=== PATIENT | male | born 1935 | race Caucasian/White ===

== ENCOUNTER → 2016-10-19 | Outpatient (REF) | payer MEDICARE ==
[~2016-10-19] MED LIST: ALPR0.25 PO; BENA20TA PO; CITA20TA4 PO; COQ-100C2 PO; FLON0.054; LEVA500T PO; OMEP40CA2 PO; SYNT112T2 PO; TYLE650T25 PO
[2016-10-19 12:57] LABS: ALBUMIN 4.4 GM/DL (3.2-5.2); ALBUMIN/GLOBULIN RATIO 1.38 (1.00-1.93); ALKALINE PHOSPHATASE 100 U/L (45-117); ALT/SGPT 30 U/L (12-78); ANION GAP 10 MEQ/L (8-16); AST/SGOT 24 U/L (15-37); BILIRUBIN,TOTAL 0.8 MG/DL (0.2-1.0); BLOOD UREA NITROGEN 15 MG/DL (7-18); CALCIUM LEVEL 9.6 MG/DL (8.8-10.2); CARBON DIOXIDE LEVEL 29 MEQ/L (21-32); CHLORIDE LEVEL 101 MEQ/L (98-107); CREATININE FOR GFR 0.96 MG/DL (0.70-1.30); GLOMERULAR FILTRATION RATE > 60.0 (>35); GLUCOSE, FASTING 94 MG/DL (83-110); POTASSIUM SERUM 4.8 MEQ/L (3.5-5.1); SODIUM LEVEL 140 MEQ/L (136-145); TOTAL PROTEIN 7.6 GM/DL (6.4-8.2)
== END ==
LOC: M LABDRWAD 12:19
PROVIDERS: ATTEND Internal Medicine
DX: Z85.528 Personal history of other malignant neoplasm of kidney (principal)

== ENCOUNTER → 2016-12-08 | Outpatient (REF) | payer MEDICARE | LOC: M SMT 12:50 | PROVIDERS: ATTEND Nurse Practitioner Women's Health | DX: R39.15 Urgency of urination (principal) ==

== ENCOUNTER → 2017-01-11 | Outpatient (CLI) | payer MEDICARE ==
[2017-01-11 13:31] LABS: MEAN CORPUSCULAR HGB CONC 33.7 g/dl (32.0-36.5); RED CELL DISTRIBUTION WIDTH 12.5 % (11.5-14.5); WHITE BLOOD COUNT 7.5 K/mm3 (4.0-10.0)
[2017-01-11 13:46] LABS: ANION GAP 7 MEQ/L (8-16); BLOOD UREA NITROGEN 15 MG/DL (7-18); CALCIUM LEVEL 8.8 MG/DL (8.8-10.2); CARBON DIOXIDE LEVEL 29 MEQ/L (21-32); CHLORIDE LEVEL 101 MEQ/L (98-107); CREATININE FOR GFR 0.92 MG/DL (0.70-1.30); GLOMERULAR FILTRATION RATE > 60.0 (>35); GLUCOSE, FASTING 92 MG/DL (83-110); POTASSIUM SERUM 4.6 MEQ/L (3.5-5.1); SODIUM LEVEL 137 MEQ/L (136-145)
== END ==
LOC: M SMT 10:03
PROVIDERS: ATTEND Urology
DX: Z85.528 Personal history of other malignant neoplasm of kidney (principal)

== ENCOUNTER → 2017-03-22 | Outpatient (REF) | payer MEDICARE ==
[~2017-03-22] MED LIST changes: +LEVA1TAB2 PO; -LEVA500T PO
[2017-03-22 14:43] LABS: ALBUMIN 4.1 GM/DL (3.2-5.2); ALBUMIN/GLOBULIN RATIO 1.41 (1.00-1.93); ALKALINE PHOSPHATASE 77 U/L (45-117); ALT/SGPT 28 U/L (12-78); ANION GAP 8 MEQ/L (8-16); AST/SGOT 23 U/L (15-37); BILIRUBIN,TOTAL 0.8 MG/DL (0.2-1.0); BLOOD UREA NITROGEN 14 MG/DL (7-18); CALCIUM LEVEL 9.3 MG/DL (8.8-10.2); CARBON DIOXIDE LEVEL 28 MEQ/L (21-32); CHLORIDE LEVEL 102 MEQ/L (98-107); CREATININE FOR GFR 0.88 MG/DL (0.70-1.30); GLOMERULAR FILTRATION RATE > 60.0 (>35); GLUCOSE, FASTING 87 MG/DL (83-110); POTASSIUM SERUM 4.1 MEQ/L (3.5-5.1); SODIUM LEVEL 138 MEQ/L (136-145)
== END ==
LOC: M SFHCPLAZ 09:40
PROVIDERS: ATTEND Internal Medicine
DX: I10 Essential (primary) hypertension (principal); E03.9 Hypothyroidism, unspecified

== ENCOUNTER → 2017-07-12 | Outpatient (REF) | payer MEDICARE ==
[2017-07-12 13:06] LABS: MEAN CORPUSCULAR HEMOGLOBIN 31.7 pg (27.0-33.0); MEAN CORPUSCULAR HGB CONC 33.8 g/dl (32.0-36.5); MEAN CORPUSCULAR VOLUME 93.8 fl (80.0-96.0); PLATELET COUNT, AUTOMATED 289 10^3/uL (150-450); RED CELL DISTRIBUTION WIDTH 12.6 % (11.5-14.5); WHITE BLOOD COUNT 6.9 10^3/uL (4.0-10.0)
[2017-07-12 13:27] LABS: ANION GAP 10 MEQ/L (8-16); BLOOD UREA NITROGEN 17 MG/DL (7-18); CALCIUM LEVEL 9.3 MG/DL (8.8-10.2); CARBON DIOXIDE LEVEL 27 MEQ/L (21-32); CHLORIDE LEVEL 103 MEQ/L (98-107); CREATININE FOR GFR 0.82 MG/DL (0.70-1.30); GLOMERULAR FILTRATION RATE > 60.0 (>35); GLUCOSE, FASTING 96 MG/DL (83-110); SODIUM LEVEL 140 MEQ/L (136-145)
== END ==
LOC: M SFHCADAM 09:51
PROVIDERS: ATTEND Family Medicine
DX: Z85.528 Personal history of other malignant neoplasm of kidney (principal)

== ENCOUNTER → 2017-08-15 | Outpatient (REF) | payer MEDICARE ==
[~2017-08-15] MED LIST changes: +BENEPOW7 PO; +FLOM5CAP PO; +PHILCAP4 PO; +[UNRECOGNIZED DRUG - CODE] XX
[2017-08-15 12:21] LABS: MEAN CORPUSCULAR HEMOGLOBIN 31.7 pg (27.0-33.0); MEAN CORPUSCULAR VOLUME 93.4 fl (80.0-96.0); PLATELET COUNT, AUTOMATED 329 10^3/uL (150-450); RED CELL DISTRIBUTION WIDTH 12.5 % (11.5-14.5); WHITE BLOOD COUNT 7.7 10^3/uL (4.0-10.0)
[2017-08-15 12:43] LABS: ALBUMIN 4.2 GM/DL (3.2-5.2); ALBUMIN/GLOBULIN RATIO 1.24 (1.00-1.93); ALKALINE PHOSPHATASE 70 U/L (45-117); ALT/SGPT 39 U/L (12-78); ANION GAP 9 MEQ/L (8-16); AST/SGOT 31 U/L (7-37); BILIRUBIN,TOTAL 0.9 MG/DL (0.2-1.0); BLOOD UREA NITROGEN 21 MG/DL (7-18); CALCIUM LEVEL 9.5 MG/DL (8.8-10.2); CARBON DIOXIDE LEVEL 28 MEQ/L (21-32); CHLORIDE LEVEL 99 MEQ/L (98-107); CREATININE FOR GFR 0.87 MG/DL (0.70-1.30); GLOMERULAR FILTRATION RATE > 60.0 (>35); GLUCOSE, FASTING 89 MG/DL (83-110); MAGNESIUM LEVEL 2.3 MG/DL (1.8-2.4); POTASSIUM SERUM 4.3 MEQ/L (3.5-5.1); SODIUM LEVEL 136 MEQ/L (136-145); TOTAL PROTEIN 7.6 GM/DL (6.4-8.2)
== END ==
LOC: M SFHCPLAZ 08:45
PROVIDERS: ATTEND Internal Medicine
DX: I10 Essential (primary) hypertension (principal)
CPT/HCPCS: 36415; 80053; 83735; 85027; G0463

== ENCOUNTER 2017-09-14 07:07 | Day surgery (SDC) | payer MEDICARE ==
[~2017-09-14 07:07] MED LIST changes: -ALPR0.25 PO; -BENA20TA PO; -BENEPOW7 PO; -CITA20TA4 PO; -COQ-100C2 PO; -FLOM5CAP PO; -FLON0.054; -LEVA1TAB2 PO; +MIDAZOLAM INJ 2 MG/2 ML VIAL (J2250) As Ordered; -OMEP40CA2 PO; -PHILCAP4 PO; -SYNT112T2 PO; -TYLE650T25 PO; -[UNRECOGNIZED DRUG - CODE] XX; +fentaNYL 100 MCG/2 ML INJECTION (J3010) As Ordered
[2017-09-14] MEDS: TROPICAMIDE 1% OPHTH SOLN 2ML OS (09:16)
[2017-09-14] MEDS: PHENYLEPHRINE 2.5% OPHTH SOL 2ML OS (09:16)
[2017-09-14] MEDS: OFLOXACIN 0.3 % (OCUFLOX) OPTH SOL 5ML OS (09:17)
[2017-09-14] MEDS: PROPARACAINE 0.5% OPHTH SOL 15ML OS (09:17)
[2017-09-14] MEDS: POVIDONE-IODINE 5% OPHTH PREP SOL 30ML As Ordered (10:21)
[2017-09-14] MEDS: ACETYLCHOLINE OPHTH SOLN 1% 2ML (MIOCHOL-E) As Ordered (10:24)
[2017-09-14] MEDS: DUOVISC (0.50ML VISCOAT/0.55ML PROVISC) OPHTH KIT As Ordered (10:24)
[2017-09-14] MEDS: BALANCED SALT IRRIGATION SOLUTION 500ML BAG (FOR OR EYE MACHINE) As Ordered (10:24)
[2017-09-14] MEDS: LIDOCAINE 0.75%/EPINEPHRINE 0.025% IN BSS 1ML SYR INTRACAMERAL (OR ONLY) As Ordered (10:24)
[2017-09-14] MEDS: CEFUROXIME 1MG/0.1ML INTRACAMERAL INJ As Ordered (10:24)
== END 2017-09-14 11:30 | disposition home or self-care (01) ==
LOC: M SDC 07:07
DX: H25.12 Age-related nuclear cataract, left eye (principal); K58.9 Irritable bowel syndrome, unspecified; F41.9 Anxiety disorder, unspecified; F32.9 Major depressive disorder, single episode, unspecified; I10 Essential (primary) hypertension; K21.9 Gastro-esophageal reflux disease without esophagitis; M19.90 Unspecified osteoarthritis, unspecified site; Z85.528 Personal history of other malignant neoplasm of kidney; Z87.891 Personal history of nicotine dependence; E03.9 Hypothyroidism, unspecified; G31.89 Other specified degenerative diseases of nervous system; M79.661 Pain in right lower leg; K59.00 Constipation, unspecified; N40.0 Benign prostatic hyperplasia without lower urinary tract symptoms; Z79.899 Other long term (current) drug therapy; Z88.8 Allergy status to other drugs, medicaments and biological substances; Z88.1 Allergy status to other antibiotic agents
CPT/HCPCS: 66984

== ENCOUNTER → 2017-11-20 | Outpatient (REF) | payer MEDICARE ==
[2017-11-20 14:23] LABS: ALBUMIN 4.2 GM/DL (3.2-5.2); ALBUMIN/GLOBULIN RATIO 1.35 (1.00-1.93); ALKALINE PHOSPHATASE 89 U/L (45-117); ALT/SGPT 43 U/L (12-78); ANION GAP 5 MEQ/L (8-16); AST/SGOT 31 U/L (7-37); BILIRUBIN,TOTAL 0.6 MG/DL (0.2-1.0); BLOOD UREA NITROGEN 18 MG/DL (7-18); CALCIUM LEVEL 8.9 MG/DL (8.8-10.2); CARBON DIOXIDE LEVEL 29 MEQ/L (21-32); CHLORIDE LEVEL 108 MEQ/L (98-107); CREATININE FOR GFR 0.79 MG/DL (0.70-1.30); GLOMERULAR FILTRATION RATE > 60.0 (>35); GLUCOSE, FASTING 97 MG/DL (70-100); POTASSIUM SERUM 4.4 MEQ/L (3.5-5.1); SODIUM LEVEL 142 MEQ/L (136-145); THYROID STIMULATING HORMONE 0.429 uIU/ML (0.358-3.740); TOTAL PROTEIN 7.3 GM/DL (6.4-8.2)
== END ==
LOC: M SFHCADAM 08:19
DX: I10 Essential (primary) hypertension (principal); Z85.528 Personal history of other malignant neoplasm of kidney; E03.9 Hypothyroidism, unspecified
CPT/HCPCS: 84443

== ENCOUNTER → 2018-01-08 | Outpatient (REF) | payer MEDICARE ==
[2018-01-08 18:58] LABS: APPEARANCE, URINE CLEAR (CLEAR); BACTERIA, URINE AUTO NEGATIVE (NEGATIVE); BILIRUBIN, URINE AUTO NEGATIVE (NEGATIVE); BLOOD, URINE BLOOD 1+ (NEGATIVE); COLOR, URINE STRAW (YELLOW); GLUCOSE, URINE (UA) AUTO NEGATIVE (NEGATIVE); KETONE, URINE AUTO NEGATIVE (NEGATIVE); LEUKOCYTE ESTERASE, URINE AUTO NEGATIVE (NEGATIVE); NITRITE, URINE AUTO NEGATIVE (NEGATIVE); PROTEIN, URINE AUTO NEGATIVE (NEGATIVE); RBC, URINE AUTO 2 /HPF (0-3); SPECIFIC GRAVITY URINE AUTO 1.004 (1.002-1.035); SQUAMOUS EPITHELIAL CELL UR AU 0 /HPF (0-6); UROBILINOGEN, URINE AUTO 0.2 mg/dL (0.0-2.0); WBC, URINE AUTO 1 /HPF (0-3)
== END ==
LOC: M SMT 18:45
DX: Z85.528 Personal history of other malignant neoplasm of kidney (principal)
CPT/HCPCS: 80048

== ENCOUNTER → 2018-01-08 | Outpatient (REF) | payer MEDICARE ==
[2018-01-08 19:26] LABS: ANION GAP 5 MEQ/L (8-16); BLOOD UREA NITROGEN 19 MG/DL (7-18); CALCIUM LEVEL 9.2 MG/DL (8.8-10.2); CARBON DIOXIDE LEVEL 31 MEQ/L (21-32); CHLORIDE LEVEL 103 MEQ/L (98-107); CREATININE FOR GFR 1.29 MG/DL (0.70-1.30); GLOMERULAR FILTRATION RATE 56.9 (>35); GLUCOSE, FASTING 104 MG/DL (70-100); POTASSIUM SERUM 4.7 MEQ/L (3.5-5.1); SODIUM LEVEL 139 MEQ/L (136-145)
== END ==
LOC: M SFHCADAM 18:43
DX: Z85.528 Personal history of other malignant neoplasm of kidney (principal)

== ENCOUNTER → 2018-01-18 | Outpatient (REF) | payer MEDICARE ==
[2018-01-18 20:33] LABS: HEMATOCRIT 45.6 % (42.0-52.0); HEMOGLOBIN 15.5 g/dl (13.5-17.5); MEAN CORPUSCULAR HEMOGLOBIN 31.6 pg (27.0-33.0); MEAN CORPUSCULAR VOLUME 93.1 fl (80.0-96.0); PLATELET COUNT, AUTOMATED 293 10^3/uL (150-450); RED CELL DISTRIBUTION WIDTH 12.7 % (11.5-14.5); WHITE BLOOD COUNT 7.6 10^3/uL (4.0-10.0)
[2018-01-18 20:36] LABS: ANION GAP 9 MEQ/L (8-16); BLOOD UREA NITROGEN 22 MG/DL (7-18); CARBON DIOXIDE LEVEL 26 MEQ/L (21-32); CHLORIDE LEVEL 105 MEQ/L (98-107); CREATININE FOR GFR 0.83 MG/DL (0.70-1.30); GLOMERULAR FILTRATION RATE > 60.0 (>35); GLUCOSE, FASTING 83 MG/DL (70-100); POTASSIUM SERUM 4.3 MEQ/L (3.5-5.1); SODIUM LEVEL 140 MEQ/L (136-145)
== END ==
LOC: M SMT 11:30
DX: Z85.528 Personal history of other malignant neoplasm of kidney (principal)
CPT/HCPCS: 80048

== ENCOUNTER 2018-01-29 13:16 | Emergency (ER) | payer MEDICARE ==
[2018-01-29 15:32] LABS: HEMATOCRIT 44.9 % (42.0-52.0); HEMOGLOBIN 15.5 g/dl (13.5-17.5); MEAN CORPUSCULAR HEMOGLOBIN 31.7 pg (27.0-33.0); MEAN CORPUSCULAR HGB CONC 34.5 g/dl (32.0-36.5); MEAN CORPUSCULAR VOLUME 91.8 fl (80.0-96.0); PLATELET COUNT, AUTOMATED 256 10^3/uL (150-450); RED BLOOD COUNT 4.89 10^6/uL (4.30-6.10); RED CELL DISTRIBUTION WIDTH 12.5 % (11.5-14.5); WHITE BLOOD COUNT 8.4 10^3/uL (4.0-10.0)
[2018-01-29 15:36] LABS: KETONE, URINE AUTO RFX NEGATIVE (NEGATIVE); LEUKOCYTE ESTERASE UR AUTO RFX NEGATIVE (NEGATIVE); MUCUS, URINE RFX SMALL (NEGATIVE); NITRITE, URINE AUTO RFX NEGATIVE (NEGATIVE); RBC, URINE AUTO RFX 5 /HPF (0-3); SPECIFIC GRAVITY UR AUTO RFX 1.009 (1.002-1.035); SQUAM EPITHELIAL CELL UR AURFX 0 /HPF (0-6); WBC, URINE AUTO RFX 0 /HPF (0-3)
[2018-01-29 16:00] LABS: ALBUMIN 3.6 GM/DL (3.2-5.2); ALBUMIN/GLOBULIN RATIO 1.09 (1.00-1.93); ALKALINE PHOSPHATASE 92 U/L (45-117); ALT/SGPT 52 U/L (12-78); ANION GAP 3 MEQ/L (8-16); AST/SGOT 27 U/L (7-37); BILIRUBIN,DIRECT 0.1 MG/DL (0.0-0.2); BILIRUBIN,TOTAL 0.4 MG/DL (0.2-1.0); BLOOD UREA NITROGEN 16 MG/DL (7-18); CALCIUM LEVEL 8.6 MG/DL (8.8-10.2); CARBON DIOXIDE LEVEL 27 MEQ/L (21-32); CHLORIDE LEVEL 110 MEQ/L (98-107); GLOMERULAR FILTRATION RATE > 60.0 (>35); GLUCOSE, FASTING 92 MG/DL (70-100); POTASSIUM SERUM 4.1 MEQ/L (3.5-5.1); SODIUM LEVEL 140 MEQ/L (136-145); TOTAL PROTEIN 6.9 GM/DL (6.4-8.2)
== END 2018-01-29 16:57 | disposition home or self-care (01) ==
LOC: M ED 13:16
DX: F41.9 Anxiety disorder, unspecified (principal); R53.81 Other malaise; Z79.899 Other long term (current) drug therapy; Z88.1 Allergy status to other antibiotic agents
CPT/HCPCS: 71046

== ENCOUNTER → 2018-05-01 | Outpatient (REF) | payer MEDICARE ==
[2018-05-01 12:22] LABS: HEMOGLOBIN 16.6 g/dl (13.5-17.5); MEAN CORPUSCULAR HEMOGLOBIN 32.2 pg (27.0-33.0); MEAN CORPUSCULAR HGB CONC 33.9 g/dl (32.0-36.5); PLATELET COUNT, AUTOMATED 287 10^3/uL (150-450); RED BLOOD COUNT 5.16 10^6/uL (4.30-6.10); RED CELL DISTRIBUTION WIDTH 12.9 % (11.5-14.5); WHITE BLOOD COUNT 7.2 10^3/uL (4.0-10.0)
[2018-05-01 12:59] LABS: ALBUMIN 4.1 GM/DL (3.2-5.2); ALBUMIN/GLOBULIN RATIO 1.32 (1.00-1.93); ALKALINE PHOSPHATASE 83 U/L (45-117); ALT/SGPT 50 U/L (12-78); ANION GAP 8 MEQ/L (8-16); AST/SGOT 34 U/L (7-37); BILIRUBIN,TOTAL 0.8 MG/DL (0.2-1.0); BLOOD UREA NITROGEN 19 MG/DL (7-18); CARBON DIOXIDE LEVEL 27 MEQ/L (21-32); CHLORIDE LEVEL 106 MEQ/L (98-107); CHOLESTEROL LEVEL 97 MG/DL (<200); CHOLESTEROL RISK RATIO 1.616 (<5); CREATININE FOR GFR 0.92 MG/DL (0.70-1.30); GLOMERULAR FILTRATION RATE > 60.0 (>35); GLUCOSE, FASTING 91 MG/DL (70-100); HDL CHOLESTEROL 60 MG/DL (>40); LDL CHOLESTEROL 28.8 MG/DL (<100); NON-HDL-C 37 MG/DL; POTASSIUM SERUM 4.4 MEQ/L (3.5-5.1); SODIUM LEVEL 141 MEQ/L (136-145); TOTAL PROTEIN 7.2 GM/DL (6.4-8.2); TRIGLYCERIDES LEVEL 41 MG/DL (<150)
== END ==
LOC: M SFHCADAM 08:09
DX: Z85.528 Personal history of other malignant neoplasm of kidney (principal); I10 Essential (primary) hypertension
CPT/HCPCS: 80053

== ENCOUNTER → 2018-07-25 | Outpatient (REF) | payer MEDICARE ==
[2018-07-25 13:52] LABS: HEMATOCRIT 48.9 % (42.0-52.0); HEMOGLOBIN 16.7 g/dl (13.5-17.5); MEAN CORPUSCULAR HEMOGLOBIN 32.3 pg (27.0-33.0); MEAN CORPUSCULAR HGB CONC 34.2 g/dl (32.0-36.5); MEAN CORPUSCULAR VOLUME 94.6 fl (80.0-96.0); PLATELET COUNT, AUTOMATED 274 10^3/uL (150-450); RED BLOOD COUNT 5.17 10^6/uL (4.30-6.10); RED CELL DISTRIBUTION WIDTH 12.8 % (11.5-14.5); WHITE BLOOD COUNT 7.1 10^3/uL (4.0-10.0)
[2018-07-25 14:05] LABS: ANION GAP 6 MEQ/L (8-16); BLOOD UREA NITROGEN 19 MG/DL (7-18); CALCIUM LEVEL 9.1 MG/DL (8.8-10.2); CARBON DIOXIDE LEVEL 29 MEQ/L (21-32); CHLORIDE LEVEL 105 MEQ/L (98-107); CREATININE FOR GFR 0.92 MG/DL (0.70-1.30); GLOMERULAR FILTRATION RATE > 60.0 (>35); GLUCOSE, FASTING 89 MG/DL (70-100); POTASSIUM SERUM 4.6 MEQ/L (3.5-5.1); SODIUM LEVEL 140 MEQ/L (136-145)
== END ==
LOC: M SFHCADAM 08:05
DX: Z85.828 Personal history of other malignant neoplasm of skin (principal)
CPT/HCPCS: 80048

== ENCOUNTER → 2018-08-13 | Outpatient (CLI) | payer MEDICARE ==
[~2018-08-13] MED LIST changes: +ISOVUE-370 76% 100ML VIAL (Q9967) As Ordered; -MIDAZOLAM INJ 2 MG/2 ML VIAL (J2250) As Ordered; -fentaNYL 100 MCG/2 ML INJECTION (J3010) As Ordered
== END ==
LOC: M RAD 13:53
DX: Z85.528 Personal history of other malignant neoplasm of kidney (principal); N28.1 Cyst of kidney, acquired; K57.30 Diverticulosis of large intestine without perforation or abscess without bleeding; K40.90 Unilateral inguinal hernia, without obstruction or gangrene, not specified as recurrent
CPT/HCPCS: Q9967

== ENCOUNTER 2018-09-09 07:47 | Emergency (ER) | payer MEDICARE ==
[~2018-09-09] VITALS: Ht 167.6 cm; Wt 55.5 kg
[~2018-09-09 07:47] MED LIST changes: +ALPR0.25 PO; +BENA20TA PO; +BENEPOW7 PO; +CITA20TA4 PO; +COQ-100C2 PO; +FLOM0.4C39 PO; +FLON0.054; -ISOVUE-370 76% 100ML VIAL (Q9967) As Ordered; +LEVA1TAB2 PO; +NAPR250T4 PO; +OMEP40CA2 PO; +PHILCAP4 PO; +SYNT112T2 PO; +TYLE650T25 PO; +[UNRECOGNIZED DRUG - CODE] XX
[2018-09-09] MEDS ORDERED: TETANUS/DIPHTHERIA TOX ADSORB ADULT 0.5ML SYR/VIAL (90714) IM ONE (08:15)
[2018-09-09 08:16] LABS: BASO % 0.5 % (0.0-1.0); EOS # 0.1 10^3/uL (0.0-0.50); EOS % 1.3 % (0.0-3.0); HEMATOCRIT 45.9 % (42.0-52.0); HEMOGLOBIN 15.9 g/dl (13.5-17.5); LYMPH # 2.3 10^3/uL (1.5-4.5); LYMPH % 26.6 % (24.0-44.0); MEAN CORPUSCULAR HEMOGLOBIN 32.1 pg (27.0-33.0); MEAN CORPUSCULAR HGB CONC 34.6 g/dl (32.0-36.5); MEAN CORPUSCULAR VOLUME 92.7 fl (80.0-96.0); MONO # 0.9 10^3/uL (0.0-0.8); MONO % 9.8 % (0.0-5.0); NEUTROPHILS # 5.3 10^3/uL (1.8-7.7); NEUTROPHILS % 60.6 % (36.0-66.0); PLATELET COUNT, AUTOMATED 243 10^3/uL (150-450); RED BLOOD COUNT 4.95 10^6/uL (4.30-6.10); WHITE BLOOD COUNT 8.7 10^3/uL (4.0-10.0)
[2018-09-09] MEDS ORDERED: B-12100010 PO (08:29)
--- NOTE | 2018-09-09 08:29 | REP ---
Clinical: Fall . Findings: Age-related atrophy and microvascular ischemic changes are appreciated. The ventricles and sulci are symmetric. Woodson-white differentiation is maintained. There is no evidence for acute intracranial hemorrhage, mass/mass effect, pathology or infarction. No extra-axial fluid collection. Calvarium is intact. Paranasal sinuses and mastoid air cells are within normal limits. Impression: Age related atrophy and microvascular ischemic changes. No acute intracranial hemorrhage, infarction, or mass/mass effect. Electronically Signed by Babar Gomez MD 09/09/2018 08:21 A
--- NOTE | 2018-09-09 08:31 | REP ---
Clinical: Trauma. Fall. Technique: Axial noncontrast images from the skull base to the thoracic inlet with coronal and sagittal re-formations. Findings: Alignment and lordosis maintained. Moderate to advanced multilevel degenerative disc osteophyte complexes are appreciated including osteophytosis, endplate sclerosis, disc space narrowing, and hypertrophic facet changes. Narrowing to multiple neural foramen noted bilaterally. There is no evidence for acute fracture / compression injury or subluxation. Spinal canal is patent. Paravertebral soft tissues are normal. Impression: Multilevel degenerative changes. No acute fracture / compression injury or subluxation. Electronically Signed by Babar Gomez MD 09/09/2018 08:23 A
[2018-09-09 08:46] LABS: INR 1.03; PROTHROMBIN TIME 13.6 SECONDS (12.1-14.4)
[2018-09-09] MEDS ORDERED: LIDOCAINE 2% W/EPIN INJ 20ML **PRES FREE As Ordered ONE (08:47)
--- NOTE | 2018-09-09 08:47 | REP ---
Clinical: Trauma. Technique: Neutral and frog lateral views of the left hip. Findings: Generalized age-related degenerative changes are appreciated along with mild osteopenia. No acute fracture or dislocation. No subcutaneous emphysema. No foreign body. Impression: Generalized degenerative changes. No acute fracture or dislocation. Electronically Signed by Babar Gomez MD 09/09/2018 08:38 A
[2018-09-09 08:48] LABS: PARTIAL THROMBOPLASTIN TIME 30.4 SECONDS (25.4-37.6)
--- NOTE | 2018-09-09 08:48 | REP ---
Clinical: Trauma. Fall. Technique: AP and frog lateral views of the left femur. Findings: In conjunction with left hip series, the femur is intact. Age-related osteopenia and degenerative changes noted at the hip and knee joint. No acute fracture or dislocation. No subcutaneous emphysema. No foreign body. Impression: Age-related osteopenia and degenerative changes. No acute fracture or dislocation appreciated. Electronically Signed by Babar Gomez MD 09/09/2018 08:39 A
[2018-09-09 08:51] LABS: ALBUMIN 3.6 GM/DL (3.2-5.2); ALT/SGPT 55 U/L (12-78); BILIRUBIN,DIRECT 0.2 MG/DL (0.0-0.2); BILIRUBIN,TOTAL 0.5 MG/DL (0.2-1.0); BLOOD UREA NITROGEN 23 MG/DL (7-18); CALCIUM LEVEL 8.6 MG/DL (8.8-10.2); CARBON DIOXIDE LEVEL 27 MEQ/L (21-32); CHLORIDE LEVEL 104 MEQ/L (98-107); CPK CREATINE PHOSPHOKINASE 127 U/L (39-308); GLOMERULAR FILTRATION RATE > 60.0 (>35); GLUCOSE, FASTING 93 MG/DL (70-100); MB/CK RELATIVE INDEX 3.23 (< OR =4); POTASSIUM SERUM 4.3 MEQ/L (3.5-5.1); SODIUM LEVEL 137 MEQ/L (136-145); TOTAL PROTEIN 6.6 GM/DL (6.4-8.2); TROPONIN I < 0.02 NG/ML (< 0.10)
--- NOTE | 2018-09-09 08:51 | REP ---
Clinical: Trauma. Fall. Technique: AP and lateral views of the left tibia / fibula. Findings: Age-related osteopenia and advanced tricompartmental degenerative changes to the knee joint noted. No acute fracture or dislocation. No subcutaneous emphysema or radiodense foreign body. Impression: Osteopenia and degenerative changes. No acute fracture or dislocation. Electronically Signed by Babar Gomez MD 09/09/2018 08:42 A
--- NOTE | 2018-09-09 08:52 | REP ---
Clinical: Trauma. Fall. Technique: Single AP view of the pelvis. Findings: Age-related osteodystrophy and degenerative changes noted. No acute fracture or dislocation. No subcutaneous emphysema. No foreign body. Impression: No acute fracture or dislocation. Electronically Signed by Babar Gomez MD 09/09/2018 08:43 A
--- NOTE | 2018-09-09 08:53 | REP ---
Clinical: Trauma/fall . Comparison: 01/29/2018 . Findings: The mediastinum and cardiac silhouette are stable and within normal limits for portable technique. The lung odom the straight chronic changes without acute consolidation, effusion, or pneumothorax. Skeletal structures are intact. Impression: No acute cardiopulmonary process appreciated. Electronically Signed by Babar Gomez MD 09/09/2018 08:44 A
[2018-09-09 11:45] VITALS: BP 104/52
--- NOTE | 2018-09-09 19:28 | ECGEPIP ---
Stationary ECG Study [facility] - ED Test Date: 2018-09-09 Pat Name: PRINCE CAMPBELL Department: Room: - Gender: M Lap Cutter: kareem : [id number] Requested By: Rajendra Deleon Order Number: [id number] Reading MD: Rajendra Deleon Measurements Intervals Lane Rate: 55 P: 50 WI: 137 QRS: -70 QRSD: 101 T: 72 QT: 430 QTc: 412 Interpretive Statements SINUS BRADYCARDIA MARKED LEFT AXIS DEVIATION LOW QRS VOLTAGE IN EXTREMITY LEADS PATTERN CONSISTENT WITH PULMONARY DISEASE CW 04/07/[address] T WAVE CHANGES Electronically Signed On 09-09-2018 19:28:14 EST by Rajendra Deleon
== END 2018-09-09 11:48 | disposition home or self-care (01) ==
LOC: M ED 07:47 → EDBD 07:47 → M ED 11:48
DX: S01.81XA Laceration without foreign body of other part of head, initial encounter (principal); S70.02XA Contusion of left hip, initial encounter; W10.8XXA Fall (on) (from) other stairs and steps, initial encounter; Y92.018 Other place in single-family (private) house as the place of occurrence of the external cause; I10 Essential (primary) hypertension; E07.9 Disorder of thyroid, unspecified; F33.9 Major depressive disorder, recurrent, unspecified; F41.9 Anxiety disorder, unspecified; N40.0 Benign prostatic hyperplasia without lower urinary tract symptoms; I25.10 Atherosclerotic heart disease of native coronary artery without angina pectoris; I25.2 Old myocardial infarction; Z88.1 Allergy status to other antibiotic agents

== ENCOUNTER 2018-09-09 17:24 | Inpatient (IN) | payer MEDICARE ==
[~2018-09-09] VITALS: Ht 165.1 cm; Wt 55.5 kg
[~2018-09-09 17:24] MED LIST changes: +B-12100010 PO
--- NOTE | 2018-09-09 18:24 | HPEPDOC ---
[facility] Medical History & Physical Date of Admission Sep 09, 2018 Attending Physician: PHILLIP SOLO MD History and Physical CHIEF COMPLAINT: Unable to care for himself. HISTORY OF PRESENT ILLNESS: Patient is an 82-year-old man. He has medical history that significant for malignant neoplasm of the kidney, hypertension, anxiety, depression, irritable bowel syndrome, hypothyroidism, obstructive uropathy, osteoarthritis of knee. Cognitive dysfunction, chondrocalcinosis. Patient was seen earlier today. Status post mechanical fall. No loss of consciousness. No nausea no vomiting, no fever or chills. No shortness of breath. No palpitations, no chest pain, no dizziness, no headaches, no blurry vision. He was worked up with negative imaging for fracture and unremarkable, labs, patient was discharged home. However, he activated EMS again, stating he feels weak and unable to take care of himself since he lives at home alone. Family members are not agreeing to care for him at this time. Hospitalist called in for possible admission as patient is requesting skilled nursing placement. PAST MEDICAL HISTORY: 1. . 2. . 3. . PAST SURGICAL HISTORY: Per HPI SOCIAL HISTORY: This at home alone. Denies smoking, denies alcohol, denies use of illicit drugs FAMILY HISTORY: Father: Father diagnosed with lung cancer Mother: Mother Siblings: 3 brothers and one sister alive ALLERGIES: Please see below. REVIEW OF SYSTEMS: 12 point review of systems negative other than that described in the body of HPI. HOME MEDICATIONS: Please see below. PHYSICAL EXAMINATION: VITAL SIGNS: Temperature 98, pulse 64, respiratory rate 18, blood pressure 126/59, pulse oximetry 95% on room air. GENERAL APPEARANCE: Elderly man, trauma to left face with dressing noted, lying calmly in bed, not in any apparent distress. He is not pale, anicteric and afebrile HEENT: Atraumatic. Neck: Supple. LUNGS: Clear to auscultation bilaterally. CARDIOVASCULAR: S1 and 2 heard, no murmurs, rubs or gallops. ABDOMEN: Obese, soft, not tender, not distended. Bowel sounds normoactive. MUSCULOSKELETAL: Apparently within normal limits EXTREMITIES: No pedal edema, 2+ bilateral pedal pulses noted. NEUROLOGICAL: Awake, alert, oriented 3. PSYCHIATRIC: Normal affect LABORATORY DATA: See below. IMAGING: Done earlier today when he was evaluated. Status post mechanical fall. Right knee x-ray:Degenerative change CT abdomen and pelvis: 1. Kidneys demonstrate simple cysts and postsurgical changes involving the right kidney which remain stable. There is no evidence for recurrent no full mass. 2. Sigmoid diverticulosis without acute diverticulitis. CT spine and cervical:Multilevel degenerative changes. No acute fracture / compression injury or subluxation CT head without contrast:Age related atrophy and microvascular ischemic changes.No acute intracranial hemorrhage, infarction, or mass/mass effect. Left hip x-ray:Generalized degenerative changes. No acute fracture or dislocation. AP view x-ray of pelvis:No acute fracture or dislocation X-ray tibia-fibula, left:Osteopenia and degenerative changes. No acute fracture or dislocation. MICROBIOLOGY: Please see below. ASSESSMENT: 82-year-old man comes in complaining this evening of inability visit to care for himself at home with weakness. Patient was seen 8 AM this morning. Status post mechanical fall. Workup for chemotherapy negative for fracture. Also negative for any intracranial abnormalities. Patient was discharged. He returns requesting transition to skilled nursing/or rehabilitation. DIAGNOSIS: Weakness requesting skilled nursing placement/or rehabilitation . PLAN: 1. We will admit patient for observation under care of Dr. Solo 2. Store [employer] Associate consult placed. 3. Will resume current outpatient medications. 4. GI prophylaxis not indicated at this time. 5. DVT prophylaxis, TEDs. 6. Discharge planning will be for skilled nursing. Vital Signs Vital Signs Date Time Temp Pulse Resp B/P (MAP) Pulse Ox O2 Delivery O2 Flow Rate FiO2 09/09/18 17:42 98.0 64 18 126/59 (81) 95 Room Air Home Medications Scheduled (Coq-10) 100 Mg Cap, 100 MG PO DAILY (JoySports) 1 Cap Cap, 1 CAP PO DAILY Benazepril Hcl (Lotensin) 20 Mg Tab, 20 MG PO DAILY Citalopram Hydrobromide (Citalopram Hydrobromide) 20 Mg Tab, 40 MG PO DAILY Cyanocobalamin (B-12) 1,000 Mcg Cap, 1,000 MCG PO DAILY Levothyroxine Sodium (Synthroid) 112 Mcg Tab, 112 MCG PO DAILY Tamsulosin Hydrochloride (Flomax) 0.4 Mg Cap, 0.4 MG PO DAILY Wheat Dextrin (Benefiber) 1 Pow Pow, 1 POW PO BID Scheduled PRN Alprazolam (Alprazolam) 0.25 Mg Tab, 0.25 MG PO BID PRN for ANXIETY/AGITATION Allergies Coded Allergies: Tetracycline (Verified Allergy, Severe, 09/14/17) Minocycline (Verified Adverse Reaction, Mild, DIZZINESS, 09/14/17) REECE CERVANTES MD Sep 09, 2018 18:24
[2018-09-09 20:10] VITALS: BP 160/73
[2018-09-09] MEDS: ALPRAZolam 0.25 MG TAB PO PRN (21:55)
[2018-09-10 06:00] VITALS: BP 100/55
[2018-09-10] MEDS: LEVOTHYROXINE 112MCG TABLET (0.112MG) PO SCH (06:02)
[2018-09-10 07:59] LABS: BASO % 0.3 % (0.0-1.0); EOS # 0.1 10^3/uL (0.0-0.50); HEMATOCRIT 45.2 % (42.0-52.0); HEMOGLOBIN 16.1 g/dl (13.5-17.5); LYMPH # 1.7 10^3/uL (1.5-4.5); LYMPH % 15.6 % (24.0-44.0); MEAN CORPUSCULAR HEMOGLOBIN 32.7 pg (27.0-33.0); MEAN CORPUSCULAR HGB CONC 35.6 g/dl (32.0-36.5); MEAN CORPUSCULAR VOLUME 91.9 fl (80.0-96.0); MONO # 1.1 10^3/uL (0.0-0.8); MONO % 10.2 % (0.0-5.0); NEUTROPHILS # 7.9 10^3/uL (1.8-7.7); NEUTROPHILS % 72.4 % (36.0-66.0); PLATELET COUNT, AUTOMATED 235 10^3/uL (150-450); RED BLOOD COUNT 4.92 10^6/uL (4.30-6.10); WHITE BLOOD COUNT 10.9 10^3/uL (4.0-10.0)
[2018-09-10 08:19] LABS: BLOOD UREA NITROGEN 19 MG/DL (7-18); CALCIUM LEVEL 8.5 MG/DL (8.8-10.2); CARBON DIOXIDE LEVEL 27 MEQ/L (21-32); CHLORIDE LEVEL 105 MEQ/L (98-107); CREATININE FOR GFR 0.87 MG/DL (0.70-1.30); GLOMERULAR FILTRATION RATE > 60.0 (>35); GLUCOSE, FASTING 126 MG/DL (70-100); MAGNESIUM LEVEL 2.2 MG/DL (1.8-2.4); SODIUM LEVEL 138 MEQ/L (136-145)
[2018-09-10] MEDS: CYANOCOBALAMIN 500 MCG TAB PO SCH (08:52)
[2018-09-10] MEDS: ALPRAZolam 0.25 MG TAB PO PRN ×2 (08:53→19:35)
[2018-09-10] MEDS: TAMSULOSIN 0.4 MG CAP PO SCH (08:53)
[2018-09-10] MEDS: ACETAMINOPHEN TAB 650MG DOSE (2X325MG) PO PRN ×2 (08:53→22:43)
[2018-09-10] MEDS: BENAZEPRIL 20 MG TAB PO SCH (08:53)
[2018-09-10] MEDS: CitaloPRAM (CeleXA) 20 MG TAB PO SCH (08:54)
[2018-09-10] MEDS: BISACODYL 5 MG TAB PO PRN (08:54)
[2018-09-10] MEDS ORDERED: LEVOTHYROXINE 112MCG TABLET (0.112MG) PO SCH (09:00)
[2018-09-10] MEDS: HEPARIN SOD (PORCINE) 5000 UNITS/ML VIAL SQ SCH ×2 (09:00→19:35)
--- NOTE | 2018-09-10 13:36 | IPNPDOC ---
Text Note Date of Service The patient was seen on 09/10/18. NOTE Subjective: Patient is an 82 year old male with a PMHx of Cognitive dysfunction, HTN, Hypothyroidism, Malignant renal cell CA, Obstructive uropathy, IBS, Anxiety / Depression, OA who presented to the ER with complaints of weakness and difficulty with ambulation. Patient was recently at [facility] ER after he experienced a mechanical fall without any loss of consciousness. At that time he was evaluated and did not have a fracture. He was subsequently sent home. Patient returned again after calling EMS because he was unable to ambulate out of a chair at home. Hospitalist service was called for evaluation and management Patient was seen and examined at the bedside. Currently patient denies any chest pain, shortness of breath, palpitations. Denies nausea, vomiting, abdominal pain, constipation, diarrhea or discomfort with urination. Patient does noted difficulty with ambulation and instability, however, he's noted that this is been a chronic issue for him and has fallen several times outside of the hospital. Patient also notes that he has bad knees and weakness of his left leg that has been there for years. Objective: Vitals (See below) General: Lying in bed, no acute distress, comfortable, AAOx3 HEENT: NC, AT CVS: RRR, +S1S2 Lungs: Fair air entry b/l, -w/r/r Abdomen: Soft, ND, NT Extremities: - Edema, - Calf tenderness Neuro: Upper extremities 5/5 strength b/l, Lower extremities: L 4/5, R 4/5, No sensory deficits Assessment and plan: Deconditioning / Weakness - likely 2/2 recent mechanical fall (09/09), unlikely 2/2 neurologic compromise - Patient had initially presented to the emergency room on 09/09 after he experienced a mechanical fall at home - At that time he denied any loss of consciousness or any program symptoms - Patient was subsequently discharged home, and eventually returned back to the ER after complaining of weakness and difficulty caring for himself - Physical exam does reveal some weakness of his lower extremities; he is noted that this is a chronic issue for him - Patient describes several episodes of falling as an outpatient - Will order MRI lumbar spine - c/w PT - Discussed with patient about considerations for different outpatient setting; suggest assisted living - PFS/case management on board Mechanical fall on 09/09: - CT c-spine 09/09: Multilevel degenerative changes. No acute fracture / compression injury or subluxation - CT head 09/09: Age related atrophy and microvascular ischemic changes. No acute intracranial hemorrhage, infarction, or mass/mass effect. - XR L hip 09/09: Generalized degenerative changes. No acute fracture or dislocation. - XR pelvis 09/09: No acute fracture or dislocation - XR tib-fib 09/09: Osteopenia and degenerative changes. No acute fracture or dislocation. - XR R knee 09/09: Degenerative change - See above Cognitive dysfunction - Currently oriented to person / place / time - Consideration for placement HTN - BP - c/w Benazepril Hypothyroidism - c/w Levothyroxine Malignant renal cell CA - Follows with urology Obstructive uropathy / BPH - c/w Tamsulosin IBS - c/w Bisacodyl PRN Anxiety / Depression - c/w Citalopram and Alprazolam PRN OA - c/w Tylenol PRN DVT prophylaxis - Will start Heparin VS,Fishbone, I+O VS, Fishbone, I+O Laboratory Tests 09/10/18 07:44 Red Blood Count 4.92, Mean Corpuscular Volume 91.9, Mean Corpuscular Hemoglobin 32.7, Mean Corpuscular Hemoglobin Concent 35.6, Red Cell Distribution Width 12.6, Neutrophils (%) (Auto) 72.4 H, Lymphocytes (%) (Auto) 15.6 L, Monocytes (%) (Auto) 10.2 H, Eosinophils (%) (Auto) 1.0, Basophils (%) (Auto) 0.3, Neutrophils # (Auto) 7.9 H, Lymphocytes # (Auto) 1.7, Monocytes # (Auto) 1.1 H, Eosinophils # (Auto) 0.1, Basophils # (Auto) 0.0, Calcium Level 8.5 L Vital Signs Date Time Temp Pulse Resp B/P (MAP) Pulse Ox O2 Delivery O2 Flow Rate FiO2 09/10/18 08:53 100/55 09/10/18 06:00 98.7 55 16 92 Room Air I&O- Last 24 Hours up to 6 AM 09/10/18 05:59 Intake Total 120 ml Output Total 750 ml Balance -630 ml PHILLIP SOLO MD Sep 10, 2018 13:36
[2018-09-10 14:00] VITALS: BP 109/54
--- NOTE | 2018-09-10 19:20 | REPVR ---
EXAM: MR Lumbar Spine Without Contrast. EXAM DATE/TIME: 09/10/2018 6:38 PM CLINICAL HISTORY: 82 years old, male; Pain; Lumbago; Additional info: Jaz peoples TECHNIQUE: Multiplanar magnetic resonance images of the lumbar spine without intravenous contrast. COMPARISON: No relevant prior studies available. FINDINGS: Limitations: This examination is slightly limited secondary to motion artifact. Vertebrae: No fracture. Marrow: Hemangiomas within the L1 and L5 vertebral bodies. Spinal cord: The conus terminates at the level of the L1 vertebral body. DISCS/SPINAL CANAL/NEURAL FORAMINA: L1-L2: No significant disc disease. No stenosis. L2-L3: No significant disc disease. No stenosis. L3-L4: Mild disc space height loss and decreased disc signal. Left sided posterolateral/foraminal focal disc bulge which abuts and slightly displaces the left L4 nerve root. Bilateral facet hypertrophy and ligamentum flavum thickening. Mild spinal stenosis. L4-L5: Mild disc space height loss and decreased disc signal. Bilateral facet hypertrophy and ligamentum flavum thickening. Mild posterior broad-based disc protrusion, asymmetric to the left. No focal disc protrusion. No definite nerve impingement. Mild spinal stenosis. Mild bilateral foraminal stenosis. L5-S1: Decreased disc signal. Asymmetric left-sided posterior broad-based disc protrusion. Mild bilateral facet hypertrophy. No nerve root impingement or spinal stenosis. Soft tissues: Unremarkable. IMPRESSION: 1. Degenerative disc disease and facet arthrosis. 2. L3-L4 left posterolateral/foraminal focal disc bulge which abuts and slightly displaces the left L4 nerve root. Correlate with left L4 radiculopathy. Electronically signed by: Teddy Marin On 09/10/2018 19:20:03 PM
[2018-09-10 22:00] VITALS: BP 133/60
[2018-09-11 06:00] VITALS: BP 121/79
[2018-09-11] MEDS: LEVOTHYROXINE 112MCG TABLET (0.112MG) PO SCH (06:06)
[2018-09-11 06:17] LABS: BASO # 0.1 10^3/uL (0.0-0.2); BASO % 0.4 % (0.0-1.0); EOS # 0.1 10^3/uL (0.0-0.50); EOS % 0.5 % (0.0-3.0); HEMATOCRIT 46.7 % (42.0-52.0); HEMOGLOBIN 16.1 g/dl (13.5-17.5); LYMPH # 1.5 10^3/uL (1.5-4.5); MEAN CORPUSCULAR HEMOGLOBIN 31.8 pg (27.0-33.0); MEAN CORPUSCULAR HGB CONC 34.5 g/dl (32.0-36.5); MEAN CORPUSCULAR VOLUME 92.3 fl (80.0-96.0); MONO # 1.6 10^3/uL (0.0-0.8); MONO % 12.3 % (0.0-5.0); NEUTROPHILS # 9.9 10^3/uL (1.8-7.7); PLATELET COUNT, AUTOMATED 230 10^3/uL (150-450); RED BLOOD COUNT 5.06 10^6/uL (4.30-6.10); WHITE BLOOD COUNT 13.2 10^3/uL (4.0-10.0)
[2018-09-11 06:42] LABS: BLOOD UREA NITROGEN 22 MG/DL (7-18); CALCIUM LEVEL 8.6 MG/DL (8.8-10.2); CARBON DIOXIDE LEVEL 26 MEQ/L (21-32); CHLORIDE LEVEL 106 MEQ/L (98-107); CREATININE FOR GFR 0.94 MG/DL (0.70-1.30); GLOMERULAR FILTRATION RATE > 60.0 (>35); GLUCOSE, FASTING 108 MG/DL (70-100); POTASSIUM SERUM 3.5 MEQ/L (3.5-5.1); SODIUM LEVEL 138 MEQ/L (136-145)
[2018-09-11] MEDS: HEPARIN SOD (PORCINE) 5000 UNITS/ML VIAL SQ SCH ×2 (08:28→21:06)
[2018-09-11] MEDS: BENAZEPRIL 20 MG TAB PO SCH (08:29)
[2018-09-11] MEDS: CitaloPRAM (CeleXA) 20 MG TAB PO SCH (08:29)
[2018-09-11] MEDS: ALPRAZolam 0.25 MG TAB PO PRN ×2 (08:30→21:07)
[2018-09-11] MEDS: CYANOCOBALAMIN 500 MCG TAB PO SCH (08:30)
[2018-09-11] MEDS: TAMSULOSIN 0.4 MG CAP PO SCH (08:30)
[2018-09-11] MEDS: ACETAMINOPHEN TAB 650MG DOSE (2X325MG) PO PRN (08:30)
--- NOTE | 2018-09-11 09:44 | IPNPDOC ---
Text Note Date of Service The patient was seen on 09/11/18. NOTE Subjective: Patient is an 82 year old male with a PMHx of Cognitive dysfunction, HTN, Hypothyroidism, Malignant renal cell CA, Obstructive uropathy, IBS, Anxiety / Depression, OA who presented to the ER with complaints of weakness and difficulty with ambulation. Patient was recently at [facility] ER after he experienced a mechanical fall without any loss of consciousness. At that time he was evaluated and did not have a fracture. He was subsequently sent home. Patient returned again after calling EMS because he was unable to ambulate out of a chair at home. Hospitalist service was called for evaluation and management Patient was seen and examined at the bedside. Still reporting some weakness of his left leg. He denies any nausea, vomiting, abdominal pain, constipation, diarrhea or discomfort with urination. Yesterday. Patient had noted some vision abnormalities, however, this morning, he denies any blurring or double vision. Objective: Vitals (See below) General: Lying in bed, no acute distress, comfortable, AAOx3 HEENT: NC, AT CVS: RRR, +S1S2 Lungs: Fair air entry b/l, auscultations without any wheezing, rales or rhonchi Abdomen: Soft, nondistended and nontender Extremities: No evidence of lower extremity edema, - Calf tenderness Neuro: Upper extremities 5/5 strength b/l, Lower extremities: L 4/5, R 5/5, No s ensory deficits Assessment and plan: Deconditioning / Weakness - likely 2/2 recent mechanical fall (09/09), unlikely 2/2 neurologic compromise - Patient had initially presented to the emergency room on 09/09 after he experienced a mechanical fall at home - At that time he denied any loss of consciousness or any program symptoms - Patient was subsequently discharged home, and eventually returned back to the ER after complaining of weakness and difficulty caring for himself - Physical exam does reveal some weakness of his lower extremities; he is noted that this is a chronic issue for him - Patient describes several episodes of falling as an outpatient - MRI L-Spine 09/10: Degenerative disc disease and facet arthrosis. L3-L4 left posterolateral/foraminal focal disc bulge which abuts and slightly displaces the left L4 nerve root. Correlate with left L4 radiculopathy. - Discussed with patient about considerations for different outpatient setting; suggest assisted living; PFS/case management on board - Orthopedic surgery has been called on consultation; has recommended pain control and physical therapy - Will start Tramadol PRN and c/w PT Mechanical fall on 09/09: - CT c-spine 09/09: Multilevel degenerative changes. No acute fracture / compression injury or subluxation - CT head 09/09: Age related atrophy and microvascular ischemic changes. No acute intracranial hemorrhage, infarction, or mass/mass effect. - XR L hip 09/09: Generalized degenerative changes. No acute fracture or dislocation. - XR pelvis 09/09: No acute fracture or dislocation - XR tib-fib 09/09: Osteopenia and degenerative changes. No acute fracture or dislocation. - XR R knee 09/09: Degenerative change - See above Cognitive dysfunction - Currently oriented to person / place / time - Consideration for placement HTN - BP well controlled - c/w Benazepril Hypothyroidism - c/w Levothyroxine Malignant renal cell CA - Follows with urology Obstructive uropathy / BPH - c/w Tamsulosin IBS - c/w Bisacodyl PRN Anxiety / Depression - c/w Citalopram and Alprazolam PRN OA - c/w Tylenol PRN DVT prophylaxis - c/w Heparin Disposition: - c/w PT - c/w Pain control - Looking into placement options VS,Fishbone, I+O VS, Fishbone, I+O Laboratory Tests 09/11/18 06:03 Red Blood Count 5.06, Mean Corpuscular Volume 92.3, Mean Corpuscular Hemoglobin 31.8, Mean Corpuscular Hemoglobin Concent 34.5, Red Cell Distribution Width 12.7, Neutrophils (%) (Auto) 75.0 H, Lymphocytes (%) (Auto) 11.0 L, Monocytes (%) (Auto) 12.3 H, Eosinophils (%) (Auto) 0.5, Basophils (%) (Auto) 0.4, Neutrophils # (Auto) 9.9 H, Lymphocytes # (Auto) 1.5, Monocytes # (Auto) 1.6 H, Eosinophils # (Auto) 0.1, Basophils # (Auto) 0.1, Calcium Level 8.6 L Vital Signs Date Time Temp Pulse Resp B/P (MAP) Pulse Ox O2 Delivery O2 Flow Rate FiO2 09/11/18 08:29 121/79 09/11/18 06:00 98.0 72 18 93 Room Air I&O- Last 24 Hours up to 6 AM 09/11/18 05:59 Intake Total 1640 ml Output Total 1300 ml Balance 340 ml PHILLIP SOLO MD Sep 11, 2018 09:44
[2018-09-11 14:00] VITALS: BP 103/57
[2018-09-11] MEDS: traMADol 50 MG TAB PO PRN (21:07)
[2018-09-11 22:00] VITALS: BP 113/53
[2018-09-12] MEDS: ACETAMINOPHEN TAB 650MG DOSE (2X325MG) PO PRN (04:22)
[2018-09-12 06:00] VITALS: BP 104/56
[2018-09-12] MEDS: LEVOTHYROXINE 112MCG TABLET (0.112MG) PO SCH (06:03)
[2018-09-12 06:37] LABS: BASO % 0.3 % (0.0-1.0); EOS # 0.1 10^3/uL (0.0-0.50); EOS % 0.9 % (0.0-3.0); HEMATOCRIT 43.5 % (42.0-52.0); HEMOGLOBIN 15.1 g/dl (13.5-17.5); LYMPH # 1.5 10^3/uL (1.5-4.5); MEAN CORPUSCULAR HEMOGLOBIN 31.6 pg (27.0-33.0); MEAN CORPUSCULAR HGB CONC 34.7 g/dl (32.0-36.5); MONO # 1.2 10^3/uL (0.0-0.8); NEUTROPHILS # 7.8 10^3/uL (1.8-7.7); NEUTROPHILS % 73.1 % (36.0-66.0); PLATELET COUNT, AUTOMATED 230 10^3/uL (150-450); RED BLOOD COUNT 4.78 10^6/uL (4.30-6.10); WHITE BLOOD COUNT 10.7 10^3/uL (4.0-10.0)
[2018-09-12 07:02] LABS: BLOOD UREA NITROGEN 20 MG/DL (7-18); CALCIUM LEVEL 8.4 MG/DL (8.8-10.2); CARBON DIOXIDE LEVEL 24 MEQ/L (21-32); CHLORIDE LEVEL 106 MEQ/L (98-107); CREATININE FOR GFR 0.72 MG/DL (0.70-1.30); GLOMERULAR FILTRATION RATE > 60.0 (>35); GLUCOSE, FASTING 101 MG/DL (70-100); POTASSIUM SERUM 3.7 MEQ/L (3.5-5.1); SODIUM LEVEL 137 MEQ/L (136-145)
[2018-09-12] MEDS: CYANOCOBALAMIN 500 MCG TAB PO SCH (08:44)
[2018-09-12] MEDS: CitaloPRAM (CeleXA) 20 MG TAB PO SCH (08:44)
[2018-09-12] MEDS: TAMSULOSIN 0.4 MG CAP PO SCH (08:44)
[2018-09-12] MEDS: BENAZEPRIL 20 MG TAB PO SCH (08:45)
[2018-09-12] MEDS: MIRALAX *UNIT DOSE* 17GM PACKET PO PRN (08:45)
[2018-09-12] MEDS: HEPARIN SOD (PORCINE) 5000 UNITS/ML VIAL SQ SCH ×2 (08:46→20:42)
--- NOTE | 2018-09-12 10:01 | HPE ---
DATE OF ADMISSION: 09/12/2018 CHIEF COMPLAINT: Left hip and knee pain following a mechanical fall a few days ago. Apparently, this could be long-standing for him over the past few years but certainly made worse with this fall. He is a little bit circumscript with his answers, but it does sound like he does not have any numbness, tingling or weakness in his legs, just some pain that starts in the anterior and lateral aspect of the hip and goes down anterior and posterior aspect of his left thigh down to his knee. He does get this in the right side as well but not as bad. There is no loss of bowel or bladder function, but he apparently was taken some more laxatives in the last few days and when he has to urinate, he also has to move his bowels. He was stating to the manager skilled that he was feeling weak and unable to take care of himself since he lives at home alone. PAST MEDICAL HISTORY: Includes: 1. Malignant neoplasm of the kidney. 2. Hypertension. 3. Anxiety. 4. Depression. 5. Irritable bowel syndrome. 6. Hypothyroidism. 7. Obstructive uropathy. 8. Osteoarthritis of the left knee. 9. Cognitive dysfunction. 10. Chondrocalcinosis MEDICATIONS: - benazepril - citalopram - cyanocobalamin - levothyroxine - tamsulosin - heparin sodium - alprazolam - acetaminophen - bisacodyl ALLERGIES: MINOCYCLINE, TETRACYCLINE SURGICAL HISTORY: 1. Flexible sigmoidoscopy. 2. Endoscopic polypectomy. 3. Esophagogastroduodenoscopy (EGD) with biopsy. 4. Partial nephrectomy. SOCIAL HISTORY: Lives at home. Denies smoking, alcohol use or illicit drugs. PHYSICAL EXAMINATION: Vital signs are normal. Temperature 98. Blood pressure 121/79. Pulse rate 72. 93% on room air. On inspection, this man is lying in bed in a moderate amount of discomfort, trying to lay more on his right side. Inspection of his lumbar spine reveals no obvious deformity. Palpation of the lumbar spine revealed no midline tenderness. There is tenderness surrounding the hip and actually mostly posterior to the knee. His lower extremity musculature is quite tight and seems like he has chronically increased tone. He has normal sensation from L2 to S1, as well as S2 to S4. His perianal sensation was normal. Strength in his lower extremities appeared full, although this was difficult to examine given his pain, but from L3 to S1 is definitely strong at 5/5 and hip flexion was difficult for him as this reproduced some pain and tightness along the posterior aspect of his left and right knee. Reflexes were difficult to elicit at the knees and ankle given his increased tone. Log rolling the hip did not produce any pain in the groin or hip. Range of motion testing in the knee was definitely diminished due to his pain, as well as chronically increased tone. Pulses in the lower extremities were normal. He had normal perfusion in his feet. Radiographs were reviewed. AP of the pelvis and AP lateral of the hip showed chronic moderate to severe osteoarthritis of the left hip, as well as the medial compartment primarily of the left knee. There was also an MRI performed of his lumbar spine. This demonstrates degenerative disc disease and facet arthrosis of L3 to L4, left posterolateral, left foramen focal disc bulge, which abuts slightly, displacing the left L4 nerve root. There are no obvious fractures seen. The clonus is normal. No obvious large disc bulge. ASSESSMENT AND PLAN: This 82-year-old man with MRI evidence of left L4 potential nerve root impingement with minimal clinical signs to correlate this on physical examination, I think that in the absence of fracture or large disc, I think that we should treat this nonoperatively with physiotherapy and pain control. I would suggest a pain consult for this man for different pain medications, as well as potential injections. He should mobilize and weight bearing as tolerated, and I recommend him seeing a physical therapist and occupational therapist while in the hospital.
--- NOTE | 2018-09-12 11:10 | IPNPDOC ---
Text Note Date of Service The patient was seen on 09/12/18. NOTE Subjective: Patient is an 82 year old male with a PMHx of Cognitive dysfunction, HTN, Hypothyroidism, Malignant renal cell CA, Obstructive uropathy, IBS, Anxiety / Depression, OA who presented to the ER with complaints of weakness and difficulty with ambulation. Patient was recently at [facility] ER after he experienced a mechanical fall without any loss of consciousness. At that time he was evaluated and did not have a fracture. He was subsequently sent home. Patient returned again after calling EMS because he was unable to ambulate out of a chair at home. Hospitalist service was called for evaluation and management Patient was seen and examined at the bedside. Patient complains of constipation this morning, he denies any nausea, vomiting, abdominal pain. Denies any discomfort with urination. Has not experienced any chest pain, shortness of tyler th or palpitations. Has been working with physical therapy. Objective: Vitals (See below) General: Lying in bed, no acute distress, comfortable, AAOx3 HEENT: NC, AT CVS: RRR, +S1S2 Lungs: Air entry is fair bilaterally, without any evidence of wheezing, rhonchi or rales Abdomen: Soft, abdomen, remains nondistended without tenderness Extremities: No evidence of lower extremity edema, - Calf tenderness Neuro: Upper extremities 5/5 strength b/l, Again lower extremities strength: L 4/5, R 5/5, No sensory deficits Assessment and plan: Deconditioning / Weakness - likely 2/2 recent mechanical fall (09/09), unlikely 2/2 neurologic compromise - Patient had initially presented to the emergency room on 09/09 after he experienced a mechanical fall at home - At that time he denied any loss of consciousness or any prodromal symptoms - Patient was subsequently discharged home, and eventually returned back to the ER after complaining of weakness and difficulty caring for himself - Physical exam does reveal some weakness of his lower extremities; he is noted that this is a chronic issue for him - Patient describes several episodes of falling as an outpatient - MRI L-Spine 09/10: Degenerative disc disease and facet arthrosis. L3-L4 left posterolateral/foraminal focal disc bulge which abuts and slightly displaces the left L4 nerve root. Correlate with left L4 radiculopathy. - Discussed with patient about considerations for different outpatient setting; suggest assisted living; PFS/case management on board - Orthopedic surgery has been called on consultation; has recommended pain control and physical therapy - c/w Tramadol PRN and Physical therapy - Will order occupational therapy and consult pain management Mechanical fall on 09/09: - CT c-spine 09/09: Multilevel degenerative changes. No acute fracture / compression injury or subluxation - CT head 09/09: Age related atrophy and microvascular ischemic changes. No acute intracranial hemorrhage, infarction, or mass/mass effect. - XR L hip 09/09: Generalized degenerative changes. No acute fracture or dislocation. - XR pelvis 09/09: No acute fracture or dislocation - XR tib-fib 09/09: Osteopenia and degenerative changes. No acute fracture or dislocation. - XR R knee 09/09: Degenerative change - See above Cognitive dysfunction - Currently oriented to person / place / time - Consideration for placement HTN - BP well controlled - c/w Benazepril Hypothyroidism - c/w Levothyroxine Malignant renal cell CA - Follows with urology Obstructive uropathy / BPH - c/w Tamsulosin IBS - c/w Bisacodyl PRN Anxiety / Depression - c/w Citalopram and Alprazolam PRN OA - c/w Tylenol PRN DVT prophylaxis - c/w Heparin Disposition: - c/w PT; will add OT - c/w Pain control; will consult pain management - Looking into placement options VS,Fishbone, I+O VS, Fishbone, I+O Laboratory Tests 09/12/18 06:22 Red Blood Count 4.78, Mean Corpuscular Volume 91.0, Mean Corpuscular Hemoglobin 31.6, Mean Corpuscular Hemoglobin Concent 34.7, Red Cell Distribution Width 12.6, Neutrophils (%) (Auto) 73.1 H, Lymphocytes (%) (Auto) 14.0 L, Monocytes (%) (Auto) 11.0 H, Eosinophils (%) (Auto) 0.9, Basophils (%) (Auto) 0.3, Neutrophils # (Auto) 7.8 H, Lymphocytes # (Auto) 1.5, Monocytes # (Auto) 1.2 H, Eosinophils # (Auto) 0.1, Basophils # (Auto) 0.0, Calcium Level 8.4 L Vital Signs Date Time Temp Pulse Resp B/P (MAP) Pulse Ox O2 Delivery O2 Flow Rate FiO2 09/12/18 08:45 104/56 09/12/18 06:00 97.5 61 18 91 Room Air I&O- Last 24 Hours up to 6 AM0 09/12/18 06:00 Intake Total 1800 ml Output Total 900 ml Balance 900 ml PHILLIP SOLO MD Sep 12, 2018 11:10
[2018-09-12 14:00] VITALS: BP 124/64
[2018-09-12] MEDS: ALPRAZolam 0.25 MG TAB PO PRN (20:42)
[2018-09-12 22:00] VITALS: BP 128/59
[2018-09-13] MEDS: traMADol 50 MG TAB PO PRN (01:28)
[2018-09-13] MEDS: LEVOTHYROXINE 112MCG TABLET (0.112MG) PO SCH (05:45)
[2018-09-13 06:00] VITALS: BP 120/61
[2018-09-13 06:52] LABS: BASO % 0.3 % (0.0-1.0); EOS # 0.1 10^3/uL (0.0-0.50); EOS % 0.9 % (0.0-3.0); HEMATOCRIT 42.6 % (42.0-52.0); HEMOGLOBIN 14.7 g/dl (13.5-17.5); LYMPH # 1.7 10^3/uL (1.5-4.5); MEAN CORPUSCULAR HEMOGLOBIN 31.7 pg (27.0-33.0); MEAN CORPUSCULAR HGB CONC 34.5 g/dl (32.0-36.5); MONO # 1.3 10^3/uL (0.0-0.8); MONO % 12.6 % (0.0-5.0); NEUTROPHILS # 7.3 10^3/uL (1.8-7.7); NEUTROPHILS % 69.2 % (36.0-66.0); PLATELET COUNT, AUTOMATED 237 10^3/uL (150-450); RED BLOOD COUNT 4.63 10^6/uL (4.30-6.10); WHITE BLOOD COUNT 10.5 10^3/uL (4.0-10.0)
[2018-09-13 07:19] LABS: BLOOD UREA NITROGEN 20 MG/DL (7-18); CALCIUM LEVEL 8.2 MG/DL (8.8-10.2); CARBON DIOXIDE LEVEL 27 MEQ/L (21-32); CHLORIDE LEVEL 107 MEQ/L (98-107); CREATININE FOR GFR 0.81 MG/DL (0.70-1.30); GLOMERULAR FILTRATION RATE > 60.0 (>35); GLUCOSE, FASTING 92 MG/DL (70-100); MAGNESIUM LEVEL 1.9 MG/DL (1.8-2.4); POTASSIUM SERUM 3.8 MEQ/L (3.5-5.1); SODIUM LEVEL 138 MEQ/L (136-145)
[2018-09-13] MEDS: CYANOCOBALAMIN 500 MCG TAB PO SCH (08:17)
[2018-09-13] MEDS: TAMSULOSIN 0.4 MG CAP PO SCH (08:18)
[2018-09-13] MEDS: BENAZEPRIL 20 MG TAB PO SCH (08:18)
[2018-09-13] MEDS: HEPARIN SOD (PORCINE) 5000 UNITS/ML VIAL SQ SCH ×2 (08:18→20:49)
[2018-09-13] MEDS: CitaloPRAM (CeleXA) 20 MG TAB PO SCH (08:18)
[2018-09-13] MEDS ORDERED: POLYVINYL ALCOHOL OPHTH SOLN 15 ML(LIQUITEARS) OU PRN (11:15)
[2018-09-13 14:00] VITALS: BP 121/59
--- NOTE | 2018-09-13 14:04 | IPNPDOC ---
Subjective Date Seen The patient was seen on 09/13/18. Subjective Chief Complaint/HPI Patient seen and examined at bedside. No acute overnight events noted. Objective Physical Examination General Exam: Positive: Alert, Cooperative, No Acute Distress ENT Exam: Positive: Atraumatic, Mucous membr. moist/pink Neck Exam: Negative: JVD Chest Exam: Positive: Clear to auscultation, Normal air movement Heart Exam: Positive: Rate Normal, Normal S1, Normal S2 Abdomen Exam: Positive: Soft; Negative: Tenderness Extremity Exam: Negative: Tenderness, Swelling Assessment /Plan Plan/VTE VTE Prophylaxis Ordered?: Yes Plan Deconditioning / Weakness MRI L-Spine 09/10: Degenerative disc disease and facet arthrosis. L3-L4 left posterolateral/foraminal focal disc bulge which abuts and slightly displaces the left L4 nerve root. Correlate with left L4 radiculopathy. Orthopedic surgery on board; has recommended pain control and physical therapy Cont Tramadol PRN and Physical therapy PFS/case management on board for placement Mechanical fall on 09/09 CT c-spine 09/09: Multilevel degenerative changes. No acute fracture / compression injury or subluxation CT head 09/09: Age related atrophy and microvascular ischemic changes. No acute intracranial hemorrhage, infarction, or mass/mass effect. XR L hip 09/09: Generalized degenerative changes. No acute fracture or dislocation. XR pelvis 09/09: No acute fracture or dislocation XR tib-fib 09/09: Osteopenia and degenerative changes. No acute fracture or dislocation. XR R knee 09/09: Degenerative change HTN Cont current regimen Hypothyroidism Levothyroxine Malignant renal cell CA Follow up as outpatient Obstructive uropathy / BPH Tamsulosin IBS Bisacodyl PRN Anxiety / Depression Citalopram and Alprazolam PRN OA Tylenol PRN DVT prophylaxis Heparin SC Disposition: PFS on board for placement. Pain mgmt consultation pending. VS, I&O, 24H, Fishbone Vital Signs/I&O Vital Signs Date Time Temp Pulse Resp B/P (MAP) Pulse Ox O2 Delivery O2 Flow Rate FiO2 09/13/18 08:18 120/61 09/13/18 06:00 99.6 60 20 91 Room Air I&O- Last 24 Hours up to 6 AM 09/13/18 05:59 Intake Total 1440 ml Output Total 350 ml Balance 1090 ml Laboratory Data 24H LABS Laboratory Tests 2 09/13/18 06:29: Immature Granulocyte % (Auto) 1.0, White Blood Count 10.5H, Red Blood Count 4.63, Hemoglobin 14.7, Hematocrit 42.6, Mean Corpuscular Volume 92.0, Mean Corpuscular Hemoglobin 31.7, Mean Corpuscular Hemoglobin Concent 34.5, Red Cell Distribution Width 12.6, Platelet Count 237, Neutrophils (%) (Auto) 69.2H, Lymphocytes (%) (Auto) 16.0L, Monocytes (%) (Auto) 12.6H, Eosinophils (%) (Auto) 0.9, Basophils (%) (Auto) 0.3, Neutrophils # (Auto) 7.3, Lymphocytes # (Auto) 1.7, Monocytes # (Auto) 1.3H, Eosinophils # (Auto) 0.1, Basophils # (Auto) 0.0, Nucleated Red Blood Cells % (auto) 0.0, Anion Gap 4L, Glomerular Filtration Rate > 60.0, Blood Urea Nitrogen 20H, Creatinine 0.81, Sodium Level 138, Potassium Level 3.8, Chloride Level 107, Carbon Dioxide Level 27, Calcium Level 8.2L, Magnesium Level 1.9 CBC/BMP Laboratory Tests 09/13/18 06:29 Red Blood Count 4.63, Mean Corpuscular Volume 92.0, Mean Corpuscular Hemoglobin 31.7, Mean Corpuscular Hemoglobin Concent 34.5, Red Cell Distribution Width 12.6, Neutrophils (%) (Auto) 69.2 H, Lymphocytes (%) (Auto) 16.0 L, Monocytes (%) (Auto) 12.6 H, Eosinophils (%) (Auto) 0.9, Basophils (%) (Auto) 0.3, Carrie trophils # (Auto) 7.3, Lymphocytes # (Auto) 1.7, Monocytes # (Auto) 1.3 H, Eosinophils # (Auto) 0.1, Basophils # (Auto) 0.0, Calcium Level 8.2 L CELE CABRERA MD Sep 13, 2018 14:04
[2018-09-13] MEDS: ACETAMINOPHEN TAB 650MG DOSE (2X325MG) PO PRN (17:53)
[2018-09-13] MEDS: ALPRAZolam 0.25 MG TAB PO PRN (20:49)
[2018-09-13 22:00] VITALS: BP 118/49
[2018-09-14 06:00] VITALS: BP 115/56
[2018-09-14] MEDS: LEVOTHYROXINE 112MCG TABLET (0.112MG) PO SCH (06:07)
[2018-09-14 06:31] LABS: BASO % 0.4 % (0.0-1.0); EOS # 0.2 10^3/uL (0.0-0.50); EOS % 1.6 % (0.0-3.0); HEMATOCRIT 41.2 % (42.0-52.0); HEMOGLOBIN 14.4 g/dl (13.5-17.5); LYMPH % 20.2 % (24.0-44.0); MEAN CORPUSCULAR HEMOGLOBIN 32.4 pg (27.0-33.0); MEAN CORPUSCULAR VOLUME 92.6 fl (80.0-96.0); MONO # 1.2 10^3/uL (0.0-0.8); MONO % 12.2 % (0.0-5.0); NEUTROPHILS # 6.3 10^3/uL (1.8-7.7); NEUTROPHILS % 64.5 % (36.0-66.0); PLATELET COUNT, AUTOMATED 257 10^3/uL (150-450); RED BLOOD COUNT 4.45 10^6/uL (4.30-6.10); WHITE BLOOD COUNT 9.8 10^3/uL (4.0-10.0)
[2018-09-14 06:51] LABS: BLOOD UREA NITROGEN 24 MG/DL (7-18); CALCIUM LEVEL 8.5 MG/DL (8.8-10.2); CARBON DIOXIDE LEVEL 24 MEQ/L (21-32); CHLORIDE LEVEL 106 MEQ/L (98-107); CREATININE FOR GFR 0.71 MG/DL (0.70-1.30); GLOMERULAR FILTRATION RATE > 60.0 (>35); GLUCOSE, FASTING 96 MG/DL (70-100); MAGNESIUM LEVEL 2.1 MG/DL (1.8-2.4); POTASSIUM SERUM 3.3 MEQ/L (3.5-5.1); SODIUM LEVEL 139 MEQ/L (136-145)
[2018-09-14] MEDS: CitaloPRAM (CeleXA) 20 MG TAB PO SCH (08:44)
[2018-09-14] MEDS: CYANOCOBALAMIN 500 MCG TAB PO SCH (08:47)
[2018-09-14] MEDS: BENAZEPRIL 20 MG TAB PO SCH (08:47)
[2018-09-14] MEDS: TAMSULOSIN 0.4 MG CAP PO SCH (08:48)
[2018-09-14] MEDS: HEPARIN SOD (PORCINE) 5000 UNITS/ML VIAL SQ SCH ×2 (08:49→19:24)
[2018-09-14] MEDS ORDERED: POTASSIUM CHLORIDE 10 MEQ SR TABLET PO ONE (09:00)
[2018-09-14 14:00] VITALS: BP 115/56
--- NOTE | 2018-09-14 16:00 | IPNPDOC ---
Subjective Date Seen The patient was seen on 09/14/18. Subjective Chief Complaint/HPI Patient seen and examined at the bedside. The patient did have a few episodes of fever yesterday afternoon/evening. However, the patient denies any acute complaints of chills, runny nose, muscle aches/pains, chest pain, cough, congestion, palpitations, abdominal pain, dysuria, urinary frequency, or any nausea/vomiting/diarrhea. The patient states that he was leaving under the covers, and that is why he possibly may have had an elevated temperature. We will hold off on ordering any antibiotics at this time, and continue to monitor the patient. Objective Physical Examination General Exam: Positive: Alert, Cooperative, No Acute Distress ENT Exam: Positive: Atraumatic, Mucous membr. moist/pink Neck Exam: Negative: JVD Chest Exam: Positive: Clear to auscultation, Normal air movement Heart Exam: Positive: Rate Normal, Normal S1, Normal S2 Abdomen Exam: Positive: Soft; Negative: Tenderness Extremity Exam: Negative: Tenderness, Swelling Assessment /Plan Plan/VTE VTE Prophylaxis Ordered?: Yes Plan Deconditioning / Weakness MRI L-Spine 09/10: Degenerative disc disease and facet arthrosis. L3-L4 left posterolateral/foraminal focal disc bulge which abuts and slightly displaces the left L4 nerve root. Correlate with left L4 radiculopathy. Orthopedic surgery on board; has recommended pain control and physical therapy Cont Tramadol PRN and Physical therapy PFS/case management on board for placement Mechanical fall on 09/09 CT c-spine 09/09: Multilevel degenerative changes. No acute fracture / compression injury or subluxation CT head 09/09: Age related atrophy and microvascular ischemic changes. No acute intracranial hemorrhage, infarction, or mass/mass effect. XR L hip 09/09: Generalized degenerative changes. No acute fracture or dislocation. XR pelvis 09/09: No acute fracture or dislocation XR tib-fib 09/09: Osteopenia and degenerative changes. No acute fracture or dislocation. XR R knee 09/09: Degenerative change HTN Cont current regimen Hypothyroidism Levothyroxine Malignant renal cell CA Follow up as outpatient Obstructive uropathy / BPH Tamsulosin IBS Bisacodyl PRN Anxiety / Depression Citalopram and Alprazolam PRN OA Tylenol PRN DVT prophylaxis Heparin SC Disposition: PFS on board for placement. VS, I&O, 24H, Fishbone Vital Signs/I&O Vital Signs Date Time Temp Pulse Resp B/P (MAP) Pulse Ox O2 Delivery O2 Flow Rate FiO2 09/14/18 14:00 99.7 64 20 115/56 (75) 94 Room Air I&O- Last 24 Hours up to 6 AM 09/14/18 06:00 Intake Total 2400 ml Output Total 0 ml Balance 2400 ml Laboratory Data 24H LABS Laboratory Tests 2 09/14/18 05:57: Immature Granulocyte % (Auto) 1.1, White Blood Count 9.8, Red Blood Count 4.45, Hemoglobin 14.4, Hematocrit 41.2L, Mean Corpuscular Volume 92.6, Mean Corpuscular Hemoglobin 32.4, Mean Corpuscular Hemoglobin Concent 35.0, Red Cell Distribution Width 12.7, Platelet Count 257, Neutrophils (%) (Auto) 64.5, Lymphocytes (%) (Auto) 20.2L, Monocytes (%) (Auto) 12.2H, Eosinophils (%) (Auto) 1.6, Basophils (%) (Auto) 0.4, Neutrophils # (Auto) 6.3, Lymphocytes # (Auto) 2.0, Monocytes # (Auto) 1.2H, Eosinophils # (Auto) 0.2, Basophils # (Auto) 0.0, Nucleated Red Blood Cells % (auto) 0.0, Anion Gap 9, Glomerular Filtration Rate > 60.0, Blood Urea Nitrogen 24H, Creatinine 0.71, Sodium Level 139, Potassium Level 3.3L, Chloride Level 106, Carbon Dioxide Level 24, Calcium Level 8.5L, Magnesium Level 2.1 CBC/BMP Laboratory Tests 09/14/18 05:57 Red Blood Count 4.45, Mean Corpuscular Volume 92.6, Mean Corpuscular Hemoglobin 32.4, Mean Corpuscular Hemoglobin Concent 35.0, Red Cell Distribution Width 12.7, Neutrophils (%) (Auto) 64.5, Lymphocytes (%) (Auto) 20.2 L, Monocytes (%) (Auto) 12.2 H, Eosinophils (%) (Auto) 1.6, Basophils (%) (Auto) 0.4, Neutrophils # (Auto) 6.3, Lymphocytes # (Auto) 2.0, Monocytes # (Auto) 1.2 H, Eosinophils # (Auto) 0.2, Basophils # (Auto) 0.0, Calcium Level 8.5 L CELE CABRERA MD Sep 14, 2018 16:00
[2018-09-14 22:00] VITALS: BP 131/56
[2018-09-14] MEDS: ALPRAZolam 0.25 MG TAB PO PRN (22:47)
[2018-09-15] MEDS: LEVOTHYROXINE 112MCG TABLET (0.112MG) PO SCH (05:46)
[2018-09-15 06:00] VITALS: BP 141/64
[2018-09-15 06:34] LABS: BASO # 0.1 10^3/uL (0.0-0.2); BASO % 0.6 % (0.0-1.0); EOS % 0.4 % (0.0-3.0); HEMATOCRIT 45.9 % (42.0-52.0); HEMOGLOBIN 15.7 g/dl (13.5-17.5); LYMPH # 1.3 10^3/uL (1.5-4.5); MEAN CORPUSCULAR HEMOGLOBIN 32.2 pg (27.0-33.0); MEAN CORPUSCULAR HGB CONC 34.2 g/dl (32.0-36.5); MEAN CORPUSCULAR VOLUME 94.3 fl (80.0-96.0); MONO % 9.8 % (0.0-5.0); NEUTROPHILS # 7.7 10^3/uL (1.8-7.7); NEUTROPHILS % 74.6 % (36.0-66.0); PLATELET COUNT, AUTOMATED 318 10^3/uL (150-450); RED BLOOD COUNT 4.87 10^6/uL (4.30-6.10); WHITE BLOOD COUNT 10.3 10^3/uL (4.0-10.0)
[2018-09-15 06:58] LABS: BLOOD UREA NITROGEN 20 MG/DL (7-18); CALCIUM LEVEL 8.7 MG/DL (8.8-10.2); CARBON DIOXIDE LEVEL 26 MEQ/L (21-32); CHLORIDE LEVEL 106 MEQ/L (98-107); GLOMERULAR FILTRATION RATE > 60.0 (>35); GLUCOSE, FASTING 118 MG/DL (70-100); MAGNESIUM LEVEL 2.1 MG/DL (1.8-2.4); POTASSIUM SERUM 3.5 MEQ/L (3.5-5.1); SODIUM LEVEL 140 MEQ/L (136-145)
[2018-09-15] MEDS: CitaloPRAM (CeleXA) 20 MG TAB PO SCH (08:37)
[2018-09-15] MEDS: CYANOCOBALAMIN 500 MCG TAB PO SCH (08:37)
[2018-09-15] MEDS: TAMSULOSIN 0.4 MG CAP PO SCH (08:37)
[2018-09-15] MEDS: BENAZEPRIL 20 MG TAB PO SCH (08:40)
[2018-09-15] MEDS: HEPARIN SOD (PORCINE) 5000 UNITS/ML VIAL SQ SCH ×2 (08:40→20:06)
--- NOTE | 2018-09-15 13:30 | IPNPDOC ---
Subjective Date Seen The patient was seen on 09/15/18. Subjective Chief Complaint/HPI Patient seen and examined at the bedside. No acute overnight events noted. Objective Physical Examination General Exam: Positive: Alert, Cooperative, No Acute Distress ENT Exam: Positive: Atraumatic, Mucous membr. moist/pink Neck Exam: Negative: JVD Chest Exam: Positive: Clear to auscultation, Normal air movement Heart Exam: Positive: Rate Normal, Normal S1, Normal S2 Abdomen Exam: Positive: Soft; Negative: Tenderness Extremity Exam: Negative: Tenderness, Swelling Assessment /Plan Plan/VTE VTE Prophylaxis Ordered?: Yes Plan Deconditioning / Weakness MRI L-Spine 09/10: Degenerative disc disease and facet arthrosis. L3-L4 left posterolateral/foraminal focal disc bulge which abuts and slightly displaces the left L4 nerve root. Correlate with left L4 radiculopathy. Orthopedic surgery on board; has recommended pain control and physical therapy Cont Tramadol PRN and Physical therapy PFS/case management on board for placement Mechanical fall on 09/09 CT c-spine 09/09: Multilevel degenerative changes. No acute fracture / compression injury or subluxation CT head 09/09: Age related atrophy and microvascular ischemic changes. No acute intracranial hemorrhage, infarction, or mass/mass effect. XR L hip 09/09: Generalized degenerative changes. No acute fracture or dislocation. XR pelvis 09/09: No acute fracture or dislocation XR tib-fib 09/09: Osteopenia and degenerative changes. No acute fracture or dislocation. XR R knee 09/09: Degenerative change HTN Cont current regimen Hypothyroidism Levothyroxine Malignant renal cell CA Follow up as outpatient Obstructive uropathy / BPH Tamsulosin IBS Bisacodyl PRN Anxiety / Depression Citalopram and Alprazolam PRN OA Tylenol PRN DVT prophylaxis Heparin SC Disposition: PFS on board for placement. VS, I&O, 24H, Fishbone Vital Signs/I&O Vital Signs Date Time Temp Pulse Resp B/P (MAP) Pulse Ox O2 Delivery O2 Flow Rate FiO2 09/15/18 08:40 124/63 09/15/18 06:00 97.8 63 20 94 Room Air I&O- Last 24 Hours up to 6 AM 09/15/18 06:00 Intake Total 1740 ml Output Total 400 ml Balance 1340 ml Laboratory Data 24H LABS Laboratory Tests 2 09/15/18 06:01: Immature Granulocyte % (Auto) 1.6, White Blood Count 10.3H, Red Blood Count 4.87, Hemoglobin 15.7, Hematocrit 45.9, Mean Corpuscular Volume 94.3, Mean Corpuscular Hemoglobin 32.2, Mean Corpuscular Hemoglobin Concent 34.2, Red Cell Distribution Width 12.8, Platelet Count 318, Neutrophils (%) (Auto) 74.6H, Lymphocytes (%) (Auto) 13.0L, Monocytes (%) (Auto) 9.8H, Eosinophils (%) (Auto) 0.4, Basophils (%) (Auto) 0.6, Neutrophils # (Auto) 7.7, Lymphocytes # (Auto) 1.3L, Monocytes # (Auto) 1.0H, Eosinophils # (Auto) 0.0, Basophils # (Auto) 0.1, Nucleated Red Blood Cells % (auto) 0.0, Anion Gap 8, Glomerular Filtration Rate > 60.0, Blood Urea Nitrogen 20H, Creatinine 0.90, Sodium Level 140, Potassium Level 3.5, Chloride Level 106, Carbon Dioxide Level 26, Calcium Level 8.7L, Magnesium Level 2.1 CBC/BMP Laboratory Tests 09/15/18 06:01 Red Blood Count 4.87, Mean Corpuscular Volume 94.3, Mean Corpuscular Hemoglobin 32.2, Mean Corpuscular Hemoglobin Concent 34.2, Red Cell Distribution Width 12.8, Neutrophils (%) (Auto) 74.6 H, Lymphocytes (%) (Auto) 13.0 L, Monocytes (%) (Auto) 9.8 H, Eosinophils (%) (Auto) 0.4, Basophils (%) (Auto) 0.6, Neutrophils # (Auto) 7.7, Lymphocytes # (Auto) 1.3 L, Monocytes # (Auto) 1.0 H, Eosinophils # (Auto) 0.0, Basophils # (Auto) 0.1, Calcium Level 8.7 L CELE CABRERA MD Sep 15, 2018 13:30
[2018-09-15 14:00] VITALS: BP 125/60
[2018-09-15] MEDS: ALPRAZolam 0.25 MG TAB PO PRN (20:06)
[2018-09-15 22:00] VITALS: BP 121/62
[2018-09-16] MEDS: LEVOTHYROXINE 112MCG TABLET (0.112MG) PO SCH (05:43)
[2018-09-16 06:00] VITALS: BP 125/69
[2018-09-16 06:15] LABS: BASO # 0.1 10^3/uL (0.0-0.2); BASO % 0.5 % (0.0-1.0); EOS # 0.1 10^3/uL (0.0-0.50); EOS % 0.6 % (0.0-3.0); HEMATOCRIT 42.2 % (42.0-52.0); HEMOGLOBIN 14.6 g/dl (13.5-17.5); LYMPH # 1.5 10^3/uL (1.5-4.5); LYMPH % 15.6 % (24.0-44.0); MEAN CORPUSCULAR HEMOGLOBIN 32.2 pg (27.0-33.0); MEAN CORPUSCULAR HGB CONC 34.6 g/dl (32.0-36.5); MEAN CORPUSCULAR VOLUME 93.2 fl (80.0-96.0); MONO # 1.1 10^3/uL (0.0-0.8); MONO % 11.1 % (0.0-5.0); NEUTROPHILS # 6.9 10^3/uL (1.8-7.7); NEUTROPHILS % 70.6 % (36.0-66.0); PLATELET COUNT, AUTOMATED 315 10^3/uL (150-450); RED BLOOD COUNT 4.53 10^6/uL (4.30-6.10); WHITE BLOOD COUNT 9.8 10^3/uL (4.0-10.0)
[2018-09-16 06:30] LABS: BLOOD UREA NITROGEN 18 MG/DL (7-18); CALCIUM LEVEL 8.6 MG/DL (8.8-10.2); CARBON DIOXIDE LEVEL 26 MEQ/L (21-32); CHLORIDE LEVEL 107 MEQ/L (98-107); CREATININE FOR GFR 0.78 MG/DL (0.70-1.30); GLOMERULAR FILTRATION RATE > 60.0 (>35); GLUCOSE, FASTING 100 MG/DL (70-100); MAGNESIUM LEVEL 2.1 MG/DL (1.8-2.4); SODIUM LEVEL 139 MEQ/L (136-145)
[2018-09-16] MEDS: ALPRAZolam 0.25 MG TAB PO PRN ×2 (09:19→21:46)
[2018-09-16] MEDS: TAMSULOSIN 0.4 MG CAP PO SCH (09:19)
[2018-09-16] MEDS: CitaloPRAM (CeleXA) 20 MG TAB PO SCH (09:19)
[2018-09-16] MEDS: BENAZEPRIL 20 MG TAB PO SCH (09:20)
[2018-09-16] MEDS: SENNA 8.6 MG TAB (SENOKOT) PO PRN (09:20)
[2018-09-16] MEDS: HEPARIN SOD (PORCINE) 5000 UNITS/ML VIAL SQ SCH ×2 (09:21→21:43)
[2018-09-16] MEDS: CYANOCOBALAMIN 500 MCG TAB PO SCH (09:21)
--- NOTE | 2018-09-16 12:19 | IPNPDOC ---
Subjective Date Seen The patient was seen on 09/16/18. Subjective Chief Complaint/HPI No acute overnight events noted. Objective Physical Examination General Exam: Positive: No Acute Distress ENT Exam: Positive: Atraumatic Neck Exam: Negative: JVD Assessment /Plan Plan/VTE VTE Prophylaxis Ordered?: Yes Plan Deconditioning / Weakness MRI L-Spine 09/10: Degenerative disc disease and facet arthrosis. L3-L4 left posterolateral/foraminal focal disc bulge which abuts and slightly displaces the left L4 nerve root. Correlate with left L4 radiculopathy. Orthopedic surgery on board; has recommended pain control and physical therapy Cont Tramadol PRN and Physical therapy PFS/case management on board for placement Mechanical fall on 09/09 CT c-spine 09/09: Multilevel degenerative changes. No acute fracture / compression injury or subluxation CT head 09/09: Age related atrophy and microvascular ischemic changes. No acute intracranial hemorrhage, infarction, or mass/mass effect. XR L hip 09/09: Generalized degenerative changes. No acute fracture or dislocation. XR pelvis 09/09: No acute fracture or dislocation XR tib-fib 09/09: Osteopenia and degenerative changes. No acute fracture or dislocation. XR R knee 09/09: Degenerative change HTN Cont current regimen Hypothyroidism Levothyroxine Malignant renal cell CA Follow up as outpatient Obstructive uropathy / BPH Tamsulosin IBS Bisacodyl PRN Anxiety / Depression Citalopram and Alprazolam PRN OA Tylenol PRN DVT prophylaxis Heparin SC Disposition: PFS on board for placement. VS, I&O, 24H, Fishbone Vital Signs/I&O Vital Signs Date Time Temp Pulse Resp B/P (MAP) Pulse Ox O2 Delivery O2 Flow Rate FiO2 09/16/18 09:20 125/69 09/16/18 06:00 97.7 62 20 96 Room Air I&O- Last 24 Hours up to 6 AM 09/16/18 06:00 Intake Total 2400 ml Output Total 600 ml Balance 1800 ml Laboratory Data 24H LABS Laboratory Tests 2 09/16/18 05:48: Immature Granulocyte % (Auto) 1.6, White Blood Count 9.8, Red Blood Count 4.53, Hemoglobin 14.6, Hematocrit 42.2, Mean Corpuscular Volume 93.2, Mean Corpuscular Hemoglobin 32.2, Mean Corpuscular Hemoglobin Concent 34.6, Red Cell Distribution Width 12.6, Platelet Count 315, Neutrophils (%) (Auto) 70.6H, Lymphocytes (%) (Auto) 15.6L, Monocytes (%) (Auto) 11.1H, Eosinophils (%) (Auto) 0.6, Basophils (%) (Auto) 0.5, Neutrophils # (Auto) 6.9, Lymphocytes # (Auto) 1.5, Monocytes # (Auto) 1.1H, Eosinophils # (Auto) 0.1, Basophils # (Auto) 0.1, Nucleated Red Blood Cells % (auto) 0.0, Anion Gap 6L, Glomerular Filtration Rate > 60.0, Blood Urea Nitrogen 18, Creatinine 0.78, Sodium Level 139, Potassium Level 4.0, Chloride Level 107, Carbon Dioxide Level 26, Calcium Level 8.6L, Magnesium Level 2.1 CBC/BMP Laboratory Tests 09/16/18 05:48 Red Blood Count 4.53, Mean Corpuscular Volume 93.2, Mean Corpuscular Hemoglobin 32.2, Mean Corpuscular Hemoglobin Concent 34.6, Red Cell Distribution Width 12.6, Neutrophils (%) (Auto) 70.6 H, Lymphocytes (%) (Auto) 15.6 L, Monocytes (%) (Auto) 11.1 H, Eosinophils (%) (Auto) 0.6, Basophils (%) (Auto) 0.5, Neutrophils # (Auto) 6.9, Lymphocytes # (Auto) 1.5, Monocytes # (Auto) 1.1 H, Eosinophils # (Auto) 0.1, Basophils # (Auto) 0.1, Calcium Level 8.6 L CELE CABRERA MD Sep 16, 2018 12:19
[2018-09-16 14:00] VITALS: BP 109/55
[2018-09-16 22:00] VITALS: BP 115/61
[2018-09-17 06:00] VITALS: BP 115/59
[2018-09-17 06:23] LABS: BASO % 0.3 % (0.0-1.0); EOS % 0.4 % (0.0-3.0); HEMATOCRIT 40.3 % (42.0-52.0); HEMOGLOBIN 14.1 g/dl (13.5-17.5); LYMPH # 1.2 10^3/uL (1.5-4.5); LYMPH % 12.9 % (24.0-44.0); MEAN CORPUSCULAR HEMOGLOBIN 32.1 pg (27.0-33.0); MEAN CORPUSCULAR VOLUME 91.8 fl (80.0-96.0); MONO % 11.5 % (0.0-5.0); NEUTROPHILS # 6.5 10^3/uL (1.8-7.7); PLATELET COUNT, AUTOMATED 331 10^3/uL (150-450); RED BLOOD COUNT 4.39 10^6/uL (4.30-6.10); WHITE BLOOD COUNT 8.9 10^3/uL (4.0-10.0)
[2018-09-17] MEDS: LEVOTHYROXINE 112MCG TABLET (0.112MG) PO SCH (06:35)
[2018-09-17 06:51] LABS: BLOOD UREA NITROGEN 15 MG/DL (7-18); CALCIUM LEVEL 8.3 MG/DL (8.8-10.2); CARBON DIOXIDE LEVEL 23 MEQ/L (21-32); CHLORIDE LEVEL 106 MEQ/L (98-107); CREATININE FOR GFR 0.74 MG/DL (0.70-1.30); GLOMERULAR FILTRATION RATE > 60.0 (>35); GLUCOSE, FASTING 115 MG/DL (70-100); MAGNESIUM LEVEL 2.1 MG/DL (1.8-2.4); POTASSIUM SERUM 3.3 MEQ/L (3.5-5.1); SODIUM LEVEL 137 MEQ/L (136-145)
[2018-09-17] MEDS: TAMSULOSIN 0.4 MG CAP PO SCH (08:52)
[2018-09-17] MEDS: CitaloPRAM (CeleXA) 20 MG TAB PO SCH (08:53)
[2018-09-17] MEDS: HEPARIN SOD (PORCINE) 5000 UNITS/ML VIAL SQ SCH ×2 (08:53→20:02)
[2018-09-17] MEDS: CYANOCOBALAMIN 500 MCG TAB PO SCH (08:53)
[2018-09-17] MEDS: BENAZEPRIL 20 MG TAB PO SCH (08:55)
[2018-09-17] MEDS ORDERED: POTASSIUM CHLORIDE 10 MEQ SR TABLET PO ONE (09:00)
--- NOTE | 2018-09-17 13:15 | IPNPDOC ---
Subjective Date Seen The patient was seen on 09/17/18. Subjective Chief Complaint/HPI Patient seen and examined at the bedside. No acute overnight events noted. Objective Physical Examination General Exam: Positive: Alert, Cooperative, No Acute Distress ENT Exam: Positive: Atraumatic Neck Exam: Negative: JVD Assessment /Plan Plan/VTE VTE Prophylaxis Ordered?: Yes Plan Deconditioning / Weakness MRI L-Spine 09/10: Degenerative disc disease and facet arthrosis. L3-L4 left posterolateral/foraminal focal disc bulge which abuts and slightly displaces the left L4 nerve root. Correlate with left L4 radiculopathy. Orthopedic surgery on board; has recommended pain control and physical therapy Cont Tramadol PRN and Physical therapy PFS/case management on board for placement Mechanical fall on 09/09 CT c-spine 09/09: Multilevel degenerative changes. No acute fracture / compression injury or subluxation CT head 09/09: Age related atrophy and microvascular ischemic changes. No acute intracranial hemorrhage, infarction, or mass/mass effect. XR L hip 09/09: Generalized degenerative changes. No acute fracture or dislocation. XR pelvis 09/09: No acute fracture or dislocation XR tib-fib 09/09: Osteopenia and degenerative changes. No acute fracture or dislocation. XR R knee 09/09: Degenerative change HTN Cont current regimen Hypothyroidism Levothyroxine Malignant renal cell CA Follow up as outpatient Obstructive uropathy / BPH Tamsulosin IBS Bisacodyl PRN Anxiety / Depression Citalopram and Alprazolam PRN OA Tylenol PRN DVT prophylaxis Heparin SC Disposition: PFS on board for placement. VS, I&O, 24H, Irvinbone Vital Signs/I&O Vital Signs Date Time Temp Pulse Resp B/P (MAP) Pulse Ox O2 Delivery O2 Flow Rate FiO2 09/17/18 08:55 126/62 09/17/18 06:00 99.4 62 20 92 Room Air I&O- Last 24 Hours up to 6 AM 09/17/18 06:00 Intake Total 1840 ml Output Total 0 ml Balance 1840 ml Laboratory Data 24H LABS Laboratory Tests 2 09/17/18 05:52: Immature Granulocyte % (Auto) 1.9, White Blood Count 8.9, Red Blood Count 4.39, Hemoglobin 14.1, Hematocrit 40.3L, Mean Corpuscular Volume 91.8, Mean Corpuscular Hemoglobin 32.1, Mean Corpuscular Hemoglobin Concent 35.0, Red Cell Distribution Width 12.6, Platelet Count 331, Neutrophils (%) (Auto) 73.0H, Lymphocytes (%) (Auto) 12.9L, Monocytes (%) (Auto) 11.5H, Eosinophils (%) (Auto) 0.4, Basophils (%) (Auto) 0.3, Neutrophils # (Auto) 6.5, Lymphocytes # (Auto) 1.2L, Monocytes # (Auto) 1.0H, Eosinophils # (Auto) 0.0, Basophils # (Auto) 0.0, Nucleated Red Blood Cells % (auto) 0.0, Anion Gap 8, Glomerular Filtration Rate > 60.0, Blood Urea Nitrogen 15, Creatinine 0.74, Sodium Level 137, Potassium Level 3.3L, Chloride Level 106, Carbon Dioxide Level 23, Calcium Level 8.3L, Magnesium Level 2.1 CBC/BMP Laboratory Tests 09/17/18 05:52 Red Blood Count 4.39, Mean Corpuscular Volume 91.8, Mean Corpuscular Hemoglobin 32.1, Mean Corpuscular Hemoglobin Concent 35.0, Red Cell Distribution Width 12.6, Neutrophils (%) (Auto) 73.0 H, Lymphocytes (%) (Auto) 12.9 L, Monocytes (%) (Auto) 11.5 H, Eosinophils (%) (Auto) 0.4, Basophils (%) (Auto) 0.3, Neutrophils # (Auto) 6.5, Lymphocytes # (Auto) 1.2 L, Monocytes # (Auto) 1.0 H, Eosinophils # (Auto) 0.0, Basophils # (Auto) 0.0, Calcium Level 8.3 L CELE CABRERA MD Sep 17, 2018 13:15
[2018-09-17 14:00] VITALS: BP 112/62
[2018-09-17] MEDS: ALPRAZolam 0.25 MG TAB PO PRN (20:02)
[2018-09-17 22:00] VITALS: BP 114/56
[2018-09-18] MEDS: LEVOTHYROXINE 112MCG TABLET (0.112MG) PO SCH (04:57)
[2018-09-18] MEDS: traMADol 50 MG TAB PO PRN (04:57)
[2018-09-18 06:00] VITALS: BP 119/61
[2018-09-18] MEDS: TAMSULOSIN 0.4 MG CAP PO SCH (09:00)
[2018-09-18] MEDS: CYANOCOBALAMIN 500 MCG TAB PO SCH (09:00)
[2018-09-18] MEDS: BENAZEPRIL 20 MG TAB PO SCH (09:00)
[2018-09-18] MEDS: CitaloPRAM (CeleXA) 20 MG TAB PO SCH (09:00)
[2018-09-18] MEDS: HEPARIN SOD (PORCINE) 5000 UNITS/ML VIAL SQ SCH ×2 (09:00→20:00)
[2018-09-18 09:36] LABS: BASO # 0.1 10^3/uL (0.0-0.2); BASO % 0.8 % (0.0-1.0); EOS # 0.1 10^3/uL (0.0-0.50); EOS % 1.5 % (0.0-3.0); HEMOGLOBIN 13.9 g/dl (13.5-17.5); LYMPH # 1.6 10^3/uL (1.5-4.5); LYMPH % 21.3 % (24.0-44.0); MEAN CORPUSCULAR HEMOGLOBIN 31.9 pg (27.0-33.0); MEAN CORPUSCULAR HGB CONC 33.9 g/dl (32.0-36.5); MONO # 0.8 10^3/uL (0.0-0.8); NEUTROPHILS # 4.5 10^3/uL (1.8-7.7); NEUTROPHILS % 61.5 % (36.0-66.0); PLATELET COUNT, AUTOMATED 338 10^3/uL (150-450); RED BLOOD COUNT 4.36 10^6/uL (4.30-6.10); WHITE BLOOD COUNT 7.3 10^3/uL (4.0-10.0)
[2018-09-18 09:50] LABS: BLOOD UREA NITROGEN 16 MG/DL (7-18); CARBON DIOXIDE LEVEL 25 MEQ/L (21-32); CHLORIDE LEVEL 107 MEQ/L (98-107); CREATININE FOR GFR 0.74 MG/DL (0.70-1.30); GLOMERULAR FILTRATION RATE > 60.0 (>35); GLUCOSE, FASTING 131 MG/DL (70-100); POTASSIUM SERUM 3.5 MEQ/L (3.5-5.1); SODIUM LEVEL 141 MEQ/L (136-145)
[2018-09-18] MEDS: BISACODYL 5 MG TAB PO PRN (10:37)
[2018-09-18] MEDS: MIRALAX *UNIT DOSE* 17GM PACKET PO PRN (10:37)
[2018-09-18 14:00] VITALS: BP 128/58
--- NOTE | 2018-09-18 19:02 | IPN ---
DATE: 09/18/2018 SUBJECTIVE: Patient seen and examined in the room today. Patient complains about bilateral eye drainage. Denies any fevers or chills. Patient denies any acute complaints. OBJECTIVE: VITAL SIGNS: Temperature 98.7, pulse 73, respirations 18, blood pressure 119/61, pulse oximetry 95% on room air. GENERAL: No sign of acute distress. Patient is alert and awake. HEENT: Normocephalic, atraumatic. Extraocular motor grossly intact. CARDIOVASCULAR: Positive S1, S2, regular rate. LUNGS: Clear to auscultation bilaterally. ABDOMEN: Soft, nontender, nondistended. Bowel sounds present. EXTREMITIES: No edema. LABORATORY DATA: WBC is 7.3, hemoglobin 13.9, hematocrit 41, platelet count is 338. Sodium is 141, potassium 3.5, chloride 107, carbon dioxide is 25, BUN 16, creatinine 0.74, GFR greater than 60, fasting glucose 131, calcium 8, magnesium 2. ASSESSMENT AND PLAN: 1. Deconditioning and weakness. MRI imaging was performed. Patient was found to have L3-4 disc bulge, slightly displaced left L4 nerve root. Continue with physical therapy. Patient needs placement. Patient and family services (PFS) is on board. 2. Mechanical fall, working with physical therapy. Patient will be on fall precautions. Previous imaging was performed. No fractures noted. 3. Cognitive dysfunction. Patient may need placement. 4. Hypertension. Blood pressure in the satisfactory range. 5. Hypothyroidism, on Synthroid. 6. Renal cell carcinoma. Followup with urology outpatient. 7. Benign prostatic hypertrophy (BPH). 8. Anxiety/depression, on Xanax, Celexa. 9. Deep vein thrombosis (DVT) prophylaxis, on heparin.
[2018-09-18] MEDS: POLYVINYL ALCOHOL OPHTH SOLN 15 ML(LIQUITEARS) OU SCH (20:00)
[2018-09-18] MEDS: ACETAMINOPHEN TAB 650MG DOSE (2X325MG) PO PRN (20:01)
[2018-09-18 22:00] VITALS: BP 107/55
[2018-09-19 06:00] VITALS: BP 120/57
[2018-09-19] MEDS: LEVOTHYROXINE 112MCG TABLET (0.112MG) PO SCH (06:05)
[2018-09-19] MEDS: ACETAMINOPHEN TAB 650MG DOSE (2X325MG) PO PRN (06:06)
[2018-09-19 06:07] LABS: HEMATOCRIT 40.7 % (42.0-52.0); HEMOGLOBIN 13.6 g/dl (13.5-17.5); MEAN CORPUSCULAR HEMOGLOBIN 31.9 pg (27.0-33.0); MEAN CORPUSCULAR HGB CONC 33.4 g/dl (32.0-36.5); MEAN CORPUSCULAR VOLUME 95.3 fl (80.0-96.0); PLATELET COUNT, AUTOMATED 351 10^3/uL (150-450); RED BLOOD COUNT 4.27 10^6/uL (4.30-6.10); WHITE BLOOD COUNT 7.8 10^3/uL (4.0-10.0)
[2018-09-19 06:47] LABS: BLOOD UREA NITROGEN 16 MG/DL (7-18); CALCIUM LEVEL 7.8 MG/DL (8.8-10.2); CARBON DIOXIDE LEVEL 25 MEQ/L (21-32); CHLORIDE LEVEL 108 MEQ/L (98-107); CREATININE FOR GFR 0.79 MG/DL (0.70-1.30); GLOMERULAR FILTRATION RATE > 60.0 (>35); GLUCOSE, FASTING 109 MG/DL (70-100); POTASSIUM SERUM 3.7 MEQ/L (3.5-5.1); SODIUM LEVEL 141 MEQ/L (136-145)
[2018-09-19] MEDS: CitaloPRAM (CeleXA) 20 MG TAB PO SCH (09:04)
[2018-09-19] MEDS: CYANOCOBALAMIN 500 MCG TAB PO SCH (09:04)
[2018-09-19] MEDS: HEPARIN SOD (PORCINE) 5000 UNITS/ML VIAL SQ SCH ×2 (09:04→20:58)
[2018-09-19] MEDS: POLYVINYL ALCOHOL OPHTH SOLN 15 ML(LIQUITEARS) OU SCH ×2 (09:04→20:58)
[2018-09-19] MEDS: TAMSULOSIN 0.4 MG CAP PO SCH (09:04)
[2018-09-19] MEDS: BENAZEPRIL 20 MG TAB PO SCH (09:05)
[2018-09-19] MEDS ORDERED: TUBERCULIN PPD 5 UNITS/0.1 ML ID ONE (13:00)
[2018-09-19 22:00] VITALS: BP 154/69
[2018-09-20] MEDS: LEVOTHYROXINE 112MCG TABLET (0.112MG) PO SCH (05:29)
[2018-09-20 06:00] VITALS: BP 106/55
[2018-09-20 06:35] LABS: HEMATOCRIT 39.4 % (42.0-52.0); HEMOGLOBIN 13.6 g/dl (13.5-17.5); MEAN CORPUSCULAR HEMOGLOBIN 32.3 pg (27.0-33.0); MEAN CORPUSCULAR HGB CONC 34.5 g/dl (32.0-36.5); MEAN CORPUSCULAR VOLUME 93.6 fl (80.0-96.0); PLATELET COUNT, AUTOMATED 354 10^3/uL (150-450); RED BLOOD COUNT 4.21 10^6/uL (4.30-6.10); WHITE BLOOD COUNT 8.5 10^3/uL (4.0-10.0)
[2018-09-20 06:50] LABS: BLOOD UREA NITROGEN 17 MG/DL (7-18); CALCIUM LEVEL 7.9 MG/DL (8.8-10.2); CARBON DIOXIDE LEVEL 23 MEQ/L (21-32); CHLORIDE LEVEL 108 MEQ/L (98-107); CREATININE FOR GFR 0.74 MG/DL (0.70-1.30); GLOMERULAR FILTRATION RATE > 60.0 (>35); GLUCOSE, FASTING 93 MG/DL (70-100); MAGNESIUM LEVEL 2.2 MG/DL (1.8-2.4); POTASSIUM SERUM 3.6 MEQ/L (3.5-5.1); SODIUM LEVEL 141 MEQ/L (136-145)
[2018-09-20] MEDS: BENAZEPRIL 20 MG TAB PO SCH (09:00)
[2018-09-20] MEDS: HEPARIN SOD (PORCINE) 5000 UNITS/ML VIAL SQ SCH ×2 (09:47→20:36)
[2018-09-20] MEDS: POLYVINYL ALCOHOL OPHTH SOLN 15 ML(LIQUITEARS) OU SCH ×2 (09:48→20:36)
[2018-09-20] MEDS: TAMSULOSIN 0.4 MG CAP PO SCH (09:49)
[2018-09-20] MEDS: CYANOCOBALAMIN 500 MCG TAB PO SCH (09:49)
[2018-09-20] MEDS: CitaloPRAM (CeleXA) 20 MG TAB PO SCH (09:49)
[2018-09-21 06:00] VITALS: BP 142/70
[2018-09-21] MEDS: LEVOTHYROXINE 112MCG TABLET (0.112MG) PO SCH (06:02)
[2018-09-21 06:16] LABS: HEMATOCRIT 41.1 % (42.0-52.0); HEMOGLOBIN 14.1 g/dl (13.5-17.5); MEAN CORPUSCULAR HEMOGLOBIN 31.8 pg (27.0-33.0); MEAN CORPUSCULAR HGB CONC 34.3 g/dl (32.0-36.5); MEAN CORPUSCULAR VOLUME 92.6 fl (80.0-96.0); PLATELET COUNT, AUTOMATED 385 10^3/uL (150-450); RED BLOOD COUNT 4.44 10^6/uL (4.30-6.10); WHITE BLOOD COUNT 9.6 10^3/uL (4.0-10.0)
[2018-09-21 06:36] LABS: BLOOD UREA NITROGEN 20 MG/DL (7-18); CARBON DIOXIDE LEVEL 24 MEQ/L (21-32); CHLORIDE LEVEL 110 MEQ/L (98-107); CREATININE FOR GFR 0.82 MG/DL (0.70-1.30); GLOMERULAR FILTRATION RATE > 60.0 (>35); GLUCOSE, FASTING 95 MG/DL (70-100); MAGNESIUM LEVEL 2.1 MG/DL (1.8-2.4); POTASSIUM SERUM 3.6 MEQ/L (3.5-5.1); SODIUM LEVEL 142 MEQ/L (136-145)
[2018-09-21] MEDS: ACETAMINOPHEN TAB 650MG DOSE (2X325MG) PO PRN (07:04)
[2018-09-21] MEDS: POLYVINYL ALCOHOL OPHTH SOLN 15 ML(LIQUITEARS) OU SCH ×2 (09:01→20:53)
[2018-09-21] MEDS: TAMSULOSIN 0.4 MG CAP PO SCH (09:02)
[2018-09-21] MEDS: BENAZEPRIL 20 MG TAB PO SCH (09:02)
[2018-09-21] MEDS: HEPARIN SOD (PORCINE) 5000 UNITS/ML VIAL SQ SCH ×2 (09:02→20:53)
[2018-09-21] MEDS: CYANOCOBALAMIN 500 MCG TAB PO SCH (09:03)
[2018-09-21] MEDS: CitaloPRAM (CeleXA) 20 MG TAB PO SCH (09:03)
[2018-09-21] MEDS ORDERED: PPD DOCUMENTATION ENTRY MISC XX ONE (13:00)
[2018-09-21] MEDS: traMADol 50 MG TAB PO PRN (20:53)
[2018-09-21] MEDS: ALPRAZolam 0.25 MG TAB PO PRN (20:57)
[2018-09-22] MEDS: LEVOTHYROXINE 112MCG TABLET (0.112MG) PO SCH (05:40)
[2018-09-22 06:00] VITALS: BP 128/68
[2018-09-22 06:38] LABS: HEMATOCRIT 40.4 % (42.0-52.0); MEAN CORPUSCULAR HEMOGLOBIN 31.8 pg (27.0-33.0); MEAN CORPUSCULAR HGB CONC 34.7 g/dl (32.0-36.5); MEAN CORPUSCULAR VOLUME 91.8 fl (80.0-96.0); PLATELET COUNT, AUTOMATED 376 10^3/uL (150-450); WHITE BLOOD COUNT 10.6 10^3/uL (4.0-10.0)
[2018-09-22 07:03] LABS: BLOOD UREA NITROGEN 16 MG/DL (7-18); CALCIUM LEVEL 8.2 MG/DL (8.8-10.2); CARBON DIOXIDE LEVEL 26 MEQ/L (21-32); CHLORIDE LEVEL 106 MEQ/L (98-107); CREATININE FOR GFR 0.77 MG/DL (0.70-1.30); GLOMERULAR FILTRATION RATE > 60.0 (>35); GLUCOSE, FASTING 92 MG/DL (70-100); MAGNESIUM LEVEL 2.1 MG/DL (1.8-2.4); POTASSIUM SERUM 3.6 MEQ/L (3.5-5.1); SODIUM LEVEL 140 MEQ/L (136-145)
[2018-09-22] MEDS: HEPARIN SOD (PORCINE) 5000 UNITS/ML VIAL SQ SCH ×2 (08:29→19:58)
[2018-09-22] MEDS: ACETAMINOPHEN TAB 650MG DOSE (2X325MG) PO PRN (08:30)
[2018-09-22] MEDS: TAMSULOSIN 0.4 MG CAP PO SCH (08:30)
[2018-09-22] MEDS: CYANOCOBALAMIN 500 MCG TAB PO SCH (08:30)
[2018-09-22] MEDS: POLYVINYL ALCOHOL OPHTH SOLN 15 ML(LIQUITEARS) OU SCH ×2 (08:30→19:59)
[2018-09-22] MEDS: CitaloPRAM (CeleXA) 20 MG TAB PO SCH (08:30)
[2018-09-22] MEDS: BENAZEPRIL 20 MG TAB PO SCH (08:30)
[2018-09-22 14:00] VITALS: BP 132/64
[2018-09-22] MEDS: traMADol 50 MG TAB PO PRN (19:58)
[2018-09-22] MEDS: ALPRAZolam 0.25 MG TAB PO PRN (19:58)
[2018-09-23] MEDS: LEVOTHYROXINE 112MCG TABLET (0.112MG) PO SCH (05:44)
[2018-09-23 06:00] VITALS: BP 131/62
[2018-09-23] MEDS: traMADol 50 MG TAB PO PRN (06:12)
[2018-09-23 06:44] LABS: HEMATOCRIT 41.8 % (42.0-52.0); MEAN CORPUSCULAR HEMOGLOBIN 31.7 pg (27.0-33.0); MEAN CORPUSCULAR HGB CONC 33.5 g/dl (32.0-36.5); MEAN CORPUSCULAR VOLUME 94.6 fl (80.0-96.0); PLATELET COUNT, AUTOMATED 373 10^3/uL (150-450); RED BLOOD COUNT 4.42 10^6/uL (4.30-6.10); WHITE BLOOD COUNT 9.8 10^3/uL (4.0-10.0)
[2018-09-23 07:16] LABS: BLOOD UREA NITROGEN 17 MG/DL (7-18); CALCIUM LEVEL 8.2 MG/DL (8.8-10.2); CARBON DIOXIDE LEVEL 25 MEQ/L (21-32); CHLORIDE LEVEL 108 MEQ/L (98-107); CREATININE FOR GFR 0.79 MG/DL (0.70-1.30); GLOMERULAR FILTRATION RATE > 60.0 (>35); GLUCOSE, FASTING 89 MG/DL (70-100); MAGNESIUM LEVEL 2.2 MG/DL (1.8-2.4); POTASSIUM SERUM 3.4 MEQ/L (3.5-5.1); SODIUM LEVEL 139 MEQ/L (136-145)
[2018-09-23] MEDS: HEPARIN SOD (PORCINE) 5000 UNITS/ML VIAL SQ SCH ×2 (08:46→20:27)
[2018-09-23] MEDS: TAMSULOSIN 0.4 MG CAP PO SCH (08:47)
[2018-09-23] MEDS: CitaloPRAM (CeleXA) 20 MG TAB PO SCH (08:47)
[2018-09-23] MEDS: CYANOCOBALAMIN 500 MCG TAB PO SCH (08:47)
[2018-09-23] MEDS: BENAZEPRIL 20 MG TAB PO SCH (08:47)
[2018-09-23] MEDS: POLYVINYL ALCOHOL OPHTH SOLN 15 ML(LIQUITEARS) OU SCH ×2 (08:48→20:27)
[2018-09-23] MEDS: ACETAMINOPHEN TAB 650MG DOSE (2X325MG) PO PRN (08:48)
[2018-09-23] MEDS: POTASSIUM CHLORIDE 10 MEQ SR TABLET PO SCH (18:43)
[2018-09-24] MEDS: LEVOTHYROXINE 112MCG TABLET (0.112MG) PO SCH (05:39)
[2018-09-24 06:00] VITALS: BP 140/70
[2018-09-24 06:09] LABS: HEMATOCRIT 42.9 % (42.0-52.0); HEMOGLOBIN 14.7 g/dl (13.5-17.5); MEAN CORPUSCULAR HEMOGLOBIN 32.2 pg (27.0-33.0); MEAN CORPUSCULAR HGB CONC 34.3 g/dl (32.0-36.5); MEAN CORPUSCULAR VOLUME 94.1 fl (80.0-96.0); PLATELET COUNT, AUTOMATED 410 10^3/uL (150-450); RED BLOOD COUNT 4.56 10^6/uL (4.30-6.10); WHITE BLOOD COUNT 9.1 10^3/uL (4.0-10.0)
[2018-09-24 06:40] LABS: BLOOD UREA NITROGEN 18 MG/DL (7-18); CALCIUM LEVEL 8.1 MG/DL (8.8-10.2); CARBON DIOXIDE LEVEL 23 MEQ/L (21-32); CHLORIDE LEVEL 108 MEQ/L (98-107); CREATININE FOR GFR 0.72 MG/DL (0.70-1.30); GLOMERULAR FILTRATION RATE > 60.0 (>35); GLUCOSE, FASTING 99 MG/DL (70-100); POTASSIUM SERUM 3.7 MEQ/L (3.5-5.1); SODIUM LEVEL 140 MEQ/L (136-145)
[2018-09-24] MEDS: HEPARIN SOD (PORCINE) 5000 UNITS/ML VIAL SQ SCH ×2 (09:00→21:11)
[2018-09-24] MEDS: CitaloPRAM (CeleXA) 20 MG TAB PO SCH (09:51)
[2018-09-24] MEDS: POTASSIUM CHLORIDE 10 MEQ SR TABLET PO SCH (09:51)
[2018-09-24] MEDS: TAMSULOSIN 0.4 MG CAP PO SCH (09:51)
[2018-09-24] MEDS: SENNA 8.6 MG TAB (SENOKOT) PO PRN (09:52)
[2018-09-24] MEDS: CYANOCOBALAMIN 500 MCG TAB PO SCH (09:52)
[2018-09-24] MEDS: POLYVINYL ALCOHOL OPHTH SOLN 15 ML(LIQUITEARS) OU SCH ×2 (09:52→21:12)
[2018-09-24] MEDS: BENAZEPRIL 20 MG TAB PO SCH (09:52)
[2018-09-24] MEDS: ALPRAZolam 0.25 MG TAB PO PRN ×2 (09:52→21:12)
[2018-09-24 14:00] VITALS: BP 143/72
[2018-09-25 06:00] VITALS: BP 123/59
[2018-09-25] MEDS: LEVOTHYROXINE 112MCG TABLET (0.112MG) PO SCH (06:02)
[2018-09-25 06:42] LABS: HEMATOCRIT 40.6 % (42.0-52.0); HEMOGLOBIN 13.7 g/dl (13.5-17.5); MEAN CORPUSCULAR HEMOGLOBIN 31.6 pg (27.0-33.0); MEAN CORPUSCULAR HGB CONC 33.7 g/dl (32.0-36.5); MEAN CORPUSCULAR VOLUME 93.8 fl (80.0-96.0); PLATELET COUNT, AUTOMATED 374 10^3/uL (150-450); RED BLOOD COUNT 4.33 10^6/uL (4.30-6.10); WHITE BLOOD COUNT 8.6 10^3/uL (4.0-10.0)
[2018-09-25 07:04] LABS: BLOOD UREA NITROGEN 14 MG/DL (7-18); CALCIUM LEVEL 8.4 MG/DL (8.8-10.2); CARBON DIOXIDE LEVEL 26 MEQ/L (21-32); CHLORIDE LEVEL 109 MEQ/L (98-107); CREATININE FOR GFR 0.76 MG/DL (0.70-1.30); GLOMERULAR FILTRATION RATE > 60.0 (>35); GLUCOSE, FASTING 86 MG/DL (70-100); MAGNESIUM LEVEL 2.2 MG/DL (1.8-2.4); POTASSIUM SERUM 3.6 MEQ/L (3.5-5.1); SODIUM LEVEL 142 MEQ/L (136-145)
[2018-09-25] MEDS: CitaloPRAM (CeleXA) 20 MG TAB PO SCH (08:53)
[2018-09-25] MEDS: TAMSULOSIN 0.4 MG CAP PO SCH (08:53)
[2018-09-25] MEDS: CYANOCOBALAMIN 500 MCG TAB PO SCH (08:53)
[2018-09-25] MEDS: BENAZEPRIL 20 MG TAB PO SCH (08:54)
[2018-09-25] MEDS: POTASSIUM CHLORIDE 10 MEQ SR TABLET PO SCH (08:54)
[2018-09-25] MEDS: POLYVINYL ALCOHOL OPHTH SOLN 15 ML(LIQUITEARS) OU SCH ×2 (08:54→21:57)
[2018-09-25] MEDS: HEPARIN SOD (PORCINE) 5000 UNITS/ML VIAL SQ SCH ×2 (08:55→21:56)
[2018-09-25] MEDS: ACETAMINOPHEN TAB 650MG DOSE (2X325MG) PO PRN (21:57)
[2018-09-26 06:00] VITALS: BP 139/65
[2018-09-26] MEDS: LEVOTHYROXINE 112MCG TABLET (0.112MG) PO SCH (06:16)
[2018-09-26] MEDS: POTASSIUM CHLORIDE 10 MEQ SR TABLET PO SCH (09:03)
[2018-09-26] MEDS: CitaloPRAM (CeleXA) 20 MG TAB PO SCH (09:03)
[2018-09-26] MEDS: BENAZEPRIL 20 MG TAB PO SCH (09:03)
[2018-09-26] MEDS: CYANOCOBALAMIN 500 MCG TAB PO SCH (09:03)
[2018-09-26] MEDS: HEPARIN SOD (PORCINE) 5000 UNITS/ML VIAL SQ SCH ×2 (09:04→22:04)
[2018-09-26] MEDS: POLYVINYL ALCOHOL OPHTH SOLN 15 ML(LIQUITEARS) OU SCH ×2 (09:04→22:05)
[2018-09-26] MEDS: TAMSULOSIN 0.4 MG CAP PO SCH (09:04)
[2018-09-27] MEDS: LEVOTHYROXINE 112MCG TABLET (0.112MG) PO SCH (05:38)
[2018-09-27 06:00] VITALS: BP 142/70
[2018-09-27] MEDS: TAMSULOSIN 0.4 MG CAP PO SCH (09:17)
[2018-09-27] MEDS: POLYVINYL ALCOHOL OPHTH SOLN 15 ML(LIQUITEARS) OU SCH ×2 (09:18→21:08)
[2018-09-27] MEDS: CYANOCOBALAMIN 500 MCG TAB PO SCH (09:18)
[2018-09-27] MEDS: BENAZEPRIL 20 MG TAB PO SCH (09:18)
[2018-09-27] MEDS: HEPARIN SOD (PORCINE) 5000 UNITS/ML VIAL SQ SCH ×2 (09:18→21:08)
[2018-09-27] MEDS: CitaloPRAM (CeleXA) 20 MG TAB PO SCH (09:18)
[2018-09-27] MEDS: POTASSIUM CHLORIDE 10 MEQ SR TABLET PO SCH (09:18)
--- NOTE | 2018-09-27 15:43 | IPNPDOC ---
Subjective Date Seen The patient was seen on 09/27/18. Subjective Chief Complaint/HPI Patient seen and examined at the bedside. No acute complaints offered. Objective Physical Examination General Exam: Positive: Alert, Cooperative, No Acute Distress ENT Exam: Positive: Atraumatic, Mucous membr. moist/pink Neck Exam: Negative: JVD Chest Exam: Positive: Clear to auscultation, Normal air movement Heart Exam: Positive: Rate Normal, Normal S1, Normal S2 Abdomen Exam: Positive: Soft; Negative: Tenderness Extremity Exam: Negative: Tenderness, Swelling Assessment /Plan Plan/VTE VTE Prophylaxis Ordered?: Yes Plan Deconditioning / Weakness MRI L-Spine 09/10: Degenerative disc disease and facet arthrosis. L3-L4 left posterolateral/foraminal focal disc bulge which abuts and slightly displaces the left L4 nerve root. Correlate with left L4 radiculopathy. Orthopedic surgery on board; has recommended pain control and physical therapy Cont Tramadol PRN and Physical therapy PFS/case management on board for placement Mechanical fall on 09/09 CT c-spine 09/09: Multilevel degenerative changes. No acute fracture / compression injury or subluxation CT head 09/09: Age related atrophy and microvascular ischemic changes. No acute intracranial hemorrhage, infarction, or mass/mass effect. XR L hip 09/09: Generalized degenerative changes. No acute fracture or dislocation. XR pelvis 09/09: No acute fracture or dislocation XR tib-fib 09/09: Osteopenia and degenerative changes. No acute fracture or dislocation. XR R knee 09/09: Degenerative change HTN Cont current regimen Hypothyroidism Levothyroxine Malignant renal cell CA Follow up as outpatient Obstructive uropathy / BPH Tamsulosin IBS Bisacodyl PRN Anxiety / Depression Citalopram and Alprazolam PRN OA Tylenol PRN DVT prophylaxis Heparin SC Disposition: PFS on board for placement. VS, I&O, 24H, Fishbone Vital Signs/I&O Vital Signs Date Time Temp Pulse Resp B/P (MAP) Pulse Ox O2 Delivery O2 Flow Rate FiO2 09/27/18 09:18 142/70 09/27/18 06:00 98.5 57 18 96 Room Air I&O- Last 24 Hours up to 6 AM 09/27/18 06:00 Intake Total 1510 ml Output Total 0 ml Balance 1510 ml CELE CABRERA MD Sep 27, 2018 15:43
[2018-09-27] MEDS: ALPRAZolam 0.25 MG TAB PO PRN (21:08)
[2018-09-28] MEDS: LEVOTHYROXINE 112MCG TABLET (0.112MG) PO SCH ×2 (05:12→05:30)
[2018-09-28 06:00] VITALS: BP 114/61
[2018-09-28] MEDS: HEPARIN SOD (PORCINE) 5000 UNITS/ML VIAL SQ SCH ×2 (09:28→20:05)
[2018-09-28] MEDS: CitaloPRAM (CeleXA) 20 MG TAB PO SCH (09:28)
[2018-09-28] MEDS: CYANOCOBALAMIN 500 MCG TAB PO SCH (09:29)
[2018-09-28] MEDS: BENAZEPRIL 20 MG TAB PO SCH (09:29)
[2018-09-28] MEDS: TAMSULOSIN 0.4 MG CAP PO SCH (09:30)
[2018-09-28] MEDS: POLYVINYL ALCOHOL OPHTH SOLN 15 ML(LIQUITEARS) OU SCH ×2 (09:31→20:05)
[2018-09-28] MEDS: POTASSIUM CHLORIDE 10 MEQ SR TABLET PO SCH (09:53)
[2018-09-28] MEDS: ALPRAZolam 0.25 MG TAB PO PRN (20:05)
[2018-09-29] MEDS: LEVOTHYROXINE 112MCG TABLET (0.112MG) PO SCH ×2 (05:49→22:25)
[2018-09-29 06:00] VITALS: BP 121/68
[2018-09-29] MEDS: POLYVINYL ALCOHOL OPHTH SOLN 15 ML(LIQUITEARS) OU SCH ×2 (09:45→21:28)
[2018-09-29] MEDS: TAMSULOSIN 0.4 MG CAP PO SCH (09:45)
[2018-09-29] MEDS: HEPARIN SOD (PORCINE) 5000 UNITS/ML VIAL SQ SCH ×2 (09:45→21:28)
[2018-09-29] MEDS: CitaloPRAM (CeleXA) 20 MG TAB PO SCH (09:45)
[2018-09-29] MEDS: CYANOCOBALAMIN 500 MCG TAB PO SCH (09:45)
[2018-09-29] MEDS: POTASSIUM CHLORIDE 10 MEQ SR TABLET PO SCH (09:46)
[2018-09-29] MEDS: BENAZEPRIL 20 MG TAB PO SCH (09:48)
[2018-09-29] MEDS: ALPRAZolam 0.25 MG TAB PO PRN (22:24)
[2018-09-30 06:00] VITALS: BP 134/60
[2018-09-30] MEDS: CYANOCOBALAMIN 500 MCG TAB PO SCH (09:31)
[2018-09-30] MEDS: TAMSULOSIN 0.4 MG CAP PO SCH (09:31)
[2018-09-30] MEDS: CitaloPRAM (CeleXA) 20 MG TAB PO SCH (09:31)
[2018-09-30] MEDS: HEPARIN SOD (PORCINE) 5000 UNITS/ML VIAL SQ SCH ×2 (09:32→21:05)
[2018-09-30] MEDS: BENAZEPRIL 20 MG TAB PO SCH (09:32)
[2018-09-30] MEDS: POLYVINYL ALCOHOL OPHTH SOLN 15 ML(LIQUITEARS) OU SCH ×2 (09:32→21:05)
[2018-09-30] MEDS: POTASSIUM CHLORIDE 10 MEQ SR TABLET PO SCH (09:32)
[2018-09-30] MEDS: ALPRAZolam 0.25 MG TAB PO PRN (21:05)
[2018-10-01] MEDS: LEVOTHYROXINE 112MCG TABLET (0.112MG) PO SCH (06:26)
[2018-10-01] MEDS: CitaloPRAM (CeleXA) 20 MG TAB PO SCH (08:53)
[2018-10-01] MEDS: TAMSULOSIN 0.4 MG CAP PO SCH (08:53)
[2018-10-01] MEDS: HEPARIN SOD (PORCINE) 5000 UNITS/ML VIAL SQ SCH ×2 (08:53→21:24)
[2018-10-01] MEDS: POTASSIUM CHLORIDE 10 MEQ SR TABLET PO SCH (08:54)
[2018-10-01] MEDS: BENAZEPRIL 20 MG TAB PO SCH (08:54)
[2018-10-01] MEDS: POLYVINYL ALCOHOL OPHTH SOLN 15 ML(LIQUITEARS) OU SCH ×2 (08:55→21:24)
[2018-10-01] MEDS: CYANOCOBALAMIN 500 MCG TAB PO SCH (08:55)
[2018-10-01] MEDS: ALPRAZolam 0.25 MG TAB PO PRN (21:23)
[2018-10-02 06:00] VITALS: BP 123/60
[2018-10-02] MEDS: LEVOTHYROXINE 112MCG TABLET (0.112MG) PO SCH (06:31)
[2018-10-02] MEDS: CYANOCOBALAMIN 500 MCG TAB PO SCH (08:49)
[2018-10-02] MEDS: TAMSULOSIN 0.4 MG CAP PO SCH (08:49)
[2018-10-02] MEDS: CitaloPRAM (CeleXA) 20 MG TAB PO SCH (08:49)
[2018-10-02] MEDS: BENAZEPRIL 20 MG TAB PO SCH (08:50)
[2018-10-02] MEDS: POTASSIUM CHLORIDE 10 MEQ SR TABLET PO SCH (08:50)
[2018-10-02] MEDS: POLYVINYL ALCOHOL OPHTH SOLN 15 ML(LIQUITEARS) OU SCH ×2 (08:50→21:00)
[2018-10-02] MEDS: HEPARIN SOD (PORCINE) 5000 UNITS/ML VIAL SQ SCH ×2 (08:50→21:42)
[2018-10-02] MEDS: ALPRAZolam 0.25 MG TAB PO PRN (21:42)
[2018-10-03 06:00] VITALS: BP 141/67
[2018-10-03] MEDS: LEVOTHYROXINE 112MCG TABLET (0.112MG) PO SCH (06:01)
[2018-10-03] MEDS: POTASSIUM CHLORIDE 10 MEQ SR TABLET PO SCH (09:39)
[2018-10-03] MEDS: CitaloPRAM (CeleXA) 20 MG TAB PO SCH (09:39)
[2018-10-03] MEDS: POLYVINYL ALCOHOL OPHTH SOLN 15 ML(LIQUITEARS) OU SCH ×2 (09:39→21:00)
[2018-10-03] MEDS: TAMSULOSIN 0.4 MG CAP PO SCH (09:39)
[2018-10-03] MEDS: HEPARIN SOD (PORCINE) 5000 UNITS/ML VIAL SQ SCH ×2 (09:39→22:33)
[2018-10-03] MEDS: CYANOCOBALAMIN 500 MCG TAB PO SCH (09:39)
[2018-10-03] MEDS: BENAZEPRIL 20 MG TAB PO SCH (09:40)
[2018-10-03] MEDS ORDERED: ALPR0.25 PO (16:37)
[2018-10-03] MEDS ORDERED: COQ-100C2 PO (16:37)
[2018-10-03] MEDS ORDERED: FLOM0.4C39 PO (16:37)
[2018-10-03] MEDS ORDERED: PHILCAP4 PO (16:37)
[2018-10-03] MEDS ORDERED: BENEPOW7 PO (16:37)
[2018-10-03] MEDS ORDERED: CITA20TA4 PO (16:37)
[2018-10-03] MEDS ORDERED: BENA20TA PO (16:37)
[2018-10-03] MEDS ORDERED: KLOR10TA76 PO (16:37)
[2018-10-03] MEDS ORDERED: B-12100010 PO (16:37)
[2018-10-03] MEDS ORDERED: SYNT112T2 PO (16:37)
[2018-10-03 17:21] LABS: HEMATOCRIT 42.7 % (42.0-52.0); HEMOGLOBIN 14.2 g/dl (13.5-17.5); MEAN CORPUSCULAR HEMOGLOBIN 31.8 pg (27.0-33.0); MEAN CORPUSCULAR HGB CONC 33.3 g/dl (32.0-36.5); MEAN CORPUSCULAR VOLUME 95.7 fl (80.0-96.0); PLATELET COUNT, AUTOMATED 335 10^3/uL (150-450); RED BLOOD COUNT 4.46 10^6/uL (4.30-6.10); WHITE BLOOD COUNT 7.1 10^3/uL (4.0-10.0)
[2018-10-03 17:44] LABS: BLOOD UREA NITROGEN 20 MG/DL (7-18); CALCIUM LEVEL 8.9 MG/DL (8.8-10.2); CARBON DIOXIDE LEVEL 28 MEQ/L (21-32); CHLORIDE LEVEL 103 MEQ/L (98-107); CREATININE FOR GFR 0.74 MG/DL (0.70-1.30); GLOMERULAR FILTRATION RATE > 60.0 (>35); GLUCOSE, FASTING 89 MG/DL (70-100); MAGNESIUM LEVEL 2.1 MG/DL (1.8-2.4); SODIUM LEVEL 139 MEQ/L (136-145)
[2018-10-03] MEDS: ALPRAZolam 0.25 MG TAB PO PRN (22:33)
[2018-10-04] MEDS: LEVOTHYROXINE 112MCG TABLET (0.112MG) PO SCH (05:37)
[2018-10-04 06:00] VITALS: BP 158/74
[2018-10-04] MEDS: POLYVINYL ALCOHOL OPHTH SOLN 15 ML(LIQUITEARS) OU SCH ×2 (08:18→20:35)
[2018-10-04] MEDS: HEPARIN SOD (PORCINE) 5000 UNITS/ML VIAL SQ SCH ×2 (08:19→20:35)
[2018-10-04] MEDS: TAMSULOSIN 0.4 MG CAP PO SCH (08:19)
[2018-10-04] MEDS: CitaloPRAM (CeleXA) 20 MG TAB PO SCH (08:19)
[2018-10-04] MEDS: POTASSIUM CHLORIDE 10 MEQ SR TABLET PO SCH (08:19)
[2018-10-04] MEDS: BENAZEPRIL 20 MG TAB PO SCH (08:19)
[2018-10-04] MEDS: CYANOCOBALAMIN 500 MCG TAB PO SCH (08:19)
[2018-10-04] MEDS: ALPRAZolam 0.25 MG TAB PO PRN (20:35)
[2018-10-05] MEDS: LEVOTHYROXINE 112MCG TABLET (0.112MG) PO SCH (05:32)
[2018-10-05 06:00] VITALS: BP 136/64
[2018-10-05] MEDS: TAMSULOSIN 0.4 MG CAP PO SCH (09:40)
[2018-10-05] MEDS: POLYVINYL ALCOHOL OPHTH SOLN 15 ML(LIQUITEARS) OU SCH ×2 (09:40→20:35)
[2018-10-05] MEDS: HEPARIN SOD (PORCINE) 5000 UNITS/ML VIAL SQ SCH ×2 (09:40→20:35)
[2018-10-05] MEDS: CYANOCOBALAMIN 500 MCG TAB PO SCH (09:41)
[2018-10-05] MEDS: CitaloPRAM (CeleXA) 20 MG TAB PO SCH (09:41)
[2018-10-05] MEDS: POTASSIUM CHLORIDE 10 MEQ SR TABLET PO SCH (09:41)
[2018-10-05] MEDS: BENAZEPRIL 20 MG TAB PO SCH (09:42)
[2018-10-06 06:00] VITALS: BP 131/66
[2018-10-06] MEDS: LEVOTHYROXINE 112MCG TABLET (0.112MG) PO SCH (06:00)
[2018-10-06] MEDS: CYANOCOBALAMIN 500 MCG TAB PO SCH (09:29)
[2018-10-06] MEDS: BENAZEPRIL 20 MG TAB PO SCH (09:29)
[2018-10-06] MEDS: POTASSIUM CHLORIDE 10 MEQ SR TABLET PO SCH (09:29)
[2018-10-06] MEDS: CitaloPRAM (CeleXA) 20 MG TAB PO SCH (09:29)
[2018-10-06] MEDS: POLYVINYL ALCOHOL OPHTH SOLN 15 ML(LIQUITEARS) OU SCH ×2 (09:30→20:29)
[2018-10-06] MEDS: HEPARIN SOD (PORCINE) 5000 UNITS/ML VIAL SQ SCH ×2 (09:30→20:29)
[2018-10-06] MEDS: TAMSULOSIN 0.4 MG CAP PO SCH (09:30)
[2018-10-06] MEDS: ALPRAZolam 0.25 MG TAB PO PRN (20:29)
[2018-10-07] MEDS: LEVOTHYROXINE 112MCG TABLET (0.112MG) PO SCH (05:17)
[2018-10-07 06:00] VITALS: BP 155/66
[2018-10-07] MEDS: POTASSIUM CHLORIDE 10 MEQ SR TABLET PO SCH (08:33)
[2018-10-07] MEDS: TAMSULOSIN 0.4 MG CAP PO SCH (08:33)
[2018-10-07] MEDS: BENAZEPRIL 20 MG TAB PO SCH (08:33)
[2018-10-07] MEDS: CitaloPRAM (CeleXA) 20 MG TAB PO SCH (08:33)
[2018-10-07] MEDS: CYANOCOBALAMIN 500 MCG TAB PO SCH (08:34)
[2018-10-07] MEDS: HEPARIN SOD (PORCINE) 5000 UNITS/ML VIAL SQ SCH ×2 (08:34→20:45)
[2018-10-07] MEDS: POLYVINYL ALCOHOL OPHTH SOLN 15 ML(LIQUITEARS) OU SCH ×2 (08:34→20:46)
[2018-10-07] MEDS: ALPRAZolam 0.25 MG TAB PO PRN (20:45)
[2018-10-08] MEDS: LEVOTHYROXINE 112MCG TABLET (0.112MG) PO SCH (05:49)
[2018-10-08 08:36] LABS: HEMATOCRIT 46.7 % (42.0-52.0); HEMOGLOBIN 15.7 g/dl (13.5-17.5); MEAN CORPUSCULAR HEMOGLOBIN 31.8 pg (27.0-33.0); MEAN CORPUSCULAR HGB CONC 33.6 g/dl (32.0-36.5); MEAN CORPUSCULAR VOLUME 94.5 fl (80.0-96.0); PLATELET COUNT, AUTOMATED 296 10^3/uL (150-450); RED BLOOD COUNT 4.94 10^6/uL (4.30-6.10); WHITE BLOOD COUNT 6.4 10^3/uL (4.0-10.0)
[2018-10-08 08:58] LABS: BLOOD UREA NITROGEN 16 MG/DL (7-18); CALCIUM LEVEL 9.1 MG/DL (8.8-10.2); CARBON DIOXIDE LEVEL 30 MEQ/L (21-32); CHLORIDE LEVEL 102 MEQ/L (98-107); CREATININE FOR GFR 0.85 MG/DL (0.70-1.30); GLOMERULAR FILTRATION RATE > 60.0 (>35); GLUCOSE, FASTING 110 MG/DL (70-100); MAGNESIUM LEVEL 2.3 MG/DL (1.8-2.4); POTASSIUM SERUM 3.9 MEQ/L (3.5-5.1); SODIUM LEVEL 137 MEQ/L (136-145)
[2018-10-08] MEDS: BENAZEPRIL 20 MG TAB PO SCH (10:35)
[2018-10-08] MEDS: HEPARIN SOD (PORCINE) 5000 UNITS/ML VIAL SQ SCH ×2 (10:35→21:13)
[2018-10-08] MEDS: TAMSULOSIN 0.4 MG CAP PO SCH (10:36)
[2018-10-08] MEDS: CYANOCOBALAMIN 500 MCG TAB PO SCH (10:36)
[2018-10-08] MEDS: POTASSIUM CHLORIDE 10 MEQ SR TABLET PO SCH (10:36)
[2018-10-08] MEDS: CitaloPRAM (CeleXA) 20 MG TAB PO SCH (10:36)
[2018-10-08] MEDS: POLYVINYL ALCOHOL OPHTH SOLN 15 ML(LIQUITEARS) OU SCH ×2 (10:36→21:13)
--- NOTE | 2018-10-08 20:11 | DSES ---
DATE OF ADMISSION: 09/12/2018 DATE OF DISCHARGE: 10/09/2018 CONSULTANTS: Orthopedics. Pain management. DISCHARGE DIAGNOSES: 1. Deconditioned and weakness. 2. Mechanical fall. 3. Displaced left L4 nerve root. 4. Cognitive dysfunction. 5. Hypertension. 6. Hypothyroidism. 7. Renal cell carcinoma. 8. BPH. 9. Anxiety/depression. 10. Irritable bowel syndrome. HOSPITALIZATION COURSE: The patient is an 83-year-old gentleman, presented to [facility] on 09/09/2018 with a chief complaint of inability to take care of himself at home. Multiple imaging studies were performed for the history of fall. MRI scan found the patient has slight displacement of the left L4 nerve root. Correlate with left radiculopathy. Orthopedic team consulted. Recommended pain control and physical therapy. Pain management was consulted. On 09/20/2018, the patient was placed on alternate level of care (ALC) status. Later, patient was accepted to the subacute rehab and discharge process initiated. Arrangements were made for discharge for 10/09/2018 . Most recent laboratory data showed temperature 97.9, pulse 55, respirations 18, blood pressure 155/66, pulse oximetry 95% in room air. Laboratory data showed WBC 6.4, hemoglobin 15.7, hematocrit 46.7, platelet count is 296. Sodium 137, potassium 3.9, chloride 102, carbon dioxide 30, BUN 16, creatinine 0.85, GFR greater than 60, fasting glucose 110, calcium is 9.1, magnesium 2.3. IMAGING STUDIES: MRI of the lumbar spine without contrast demonstrated L3-L4 left posterolateral/foraminal focal disc bulge and slightly displaced left L4 nerve root. Correlate with left L4 radiculopathy. DISCHARGE MEDICATIONS: - potassium chloride 10 mEq by mouth daily - Lotensin 20 mg by mouth daily - citalopram 40 mg by mouth daily - CoQ-10 100 mg by mouth daily - vitamin B12 1000 mcg by mouth daily - Synthroid 112 mcg by mouth daily - Flomax 0.4 mg by mouth daily - Benefiber one powder by mouth twice a day Discontinue line. Discharge patient to a facility. Activity as tolerated. Low salt diet as tolerated. Patient should followup with primary care provider in 1-2 weeks. DISCHARGE TIME: Greater than 30 minutes. DISCHARGE CONDITION: Fair. edited: 10/11/2018 [id number] tkf MTDLuis Manuel
[2018-10-08] MEDS: ALPRAZolam 0.25 MG TAB PO PRN (21:13)
[2018-10-09 06:00] VITALS: BP 155/65
[2018-10-09] MEDS: LEVOTHYROXINE 112MCG TABLET (0.112MG) PO SCH (06:38)
--- NOTE | 2018-10-09 08:29 | IPNPDOC ---
Text Note Date of Service 10/09/18. NOTE No acute overnight events noted as per house staff. Patient may be discharged as previously planned for this morning. Please see my colleague's discharge summary from 10/08/18 for extent of details regarding hospitalization. VS,Fishbone, I+O VS, Fishbone, I+O Vital Signs Date Time Temp Pulse Resp B/P (MAP) Pulse Ox O2 Delivery O2 Flow Rate FiO2 10/09/18 06:00 97.4 60 18 155/65 (95) 95 10/07/18 06:00 Room Air I&O- Last 24 Hours up to 6 AM 10/09/18 06:00 Intake Total 2100 ml Output Total 0 ml Balance 2100 ml CELE CABRERA MD Oct 09, 2018 08:29
[2018-10-09] MEDS: POTASSIUM CHLORIDE 10 MEQ SR TABLET PO SCH (09:27)
[2018-10-09] MEDS: TAMSULOSIN 0.4 MG CAP PO SCH (09:27)
[2018-10-09] MEDS: CitaloPRAM (CeleXA) 20 MG TAB PO SCH (09:27)
[2018-10-09 09:28] VITALS: BP 145/68
[2018-10-09] MEDS: POLYVINYL ALCOHOL OPHTH SOLN 15 ML(LIQUITEARS) OU SCH (09:28)
[2018-10-09] MEDS: HEPARIN SOD (PORCINE) 5000 UNITS/ML VIAL SQ SCH (09:28)
[2018-10-09] MEDS: BENAZEPRIL 20 MG TAB PO SCH (09:28)
[2018-10-09] MEDS: CYANOCOBALAMIN 500 MCG TAB PO SCH (09:29)
== END 2018-10-09 10:10 | DRG 552 ==
LOC: M ED 17:24 → M ED INP 18:25 → M MS5PR 19:55 → OBSVTOIN 09-12 07:23 → INTOOBSV 09-12 07:23
PROVIDERS: ADMIT Hospitalist; ATTEND Internal Medicine
DX: M51.36 Other intervertebral disc degeneration, lumbar region (principal); N40.0 Benign prostatic hyperplasia without lower urinary tract symptoms; F32.9 Major depressive disorder, single episode, unspecified; F41.9 Anxiety disorder, unspecified; E03.9 Hypothyroidism, unspecified; K58.8 Other irritable bowel syndrome; I10 Essential (primary) hypertension; Z79.899 Other long term (current) drug therapy; Z88.8 Allergy status to other drugs, medicaments and biological substances; M17.11 Unilateral primary osteoarthritis, right knee; Z85.528 Personal history of other malignant neoplasm of kidney; M11.20 Other chondrocalcinosis, unspecified site; M50.30 Other cervical disc degeneration, unspecified cervical region